=== PATIENT | female | born 1985 | race Caucasian/White ===

== ENCOUNTER 2017-05-01 15:47 | Emergency (ER) | payer OTHER ==
--- NOTE | 2017-05-01 17:39 | RAD REPORT ---
EXAM DESCRIPTION: RAD - Chest Single View - 05/01/2017 5:33 pm CLINICAL HISTORY: Chest pain. COMPARISON: 07/03/2016 FINDINGS: Portable technique limits examination quality. The lungs are grossly clear. The heart is normal in size. No displaced fractures. IMPRESSION: No acute intrathoracic process suspected.
[2017-05-01 18:06] LABS: Absolute Lymphocytes (CBC) 2.1 K/uL (0.7-4.9); Absolute Monocytes 0.6 K/uL (0.1-1.3); Absolute Neutrophil 7.1 K/uL (1.8-8.0); Basophils % 0.4 % (0-1.3); Eosinophils % 0.4 % (0-4.4); Hematocrit 42.9 % (36.0-45.0); MCV 86.8 fL (80-100); MPV 9.6 fL (7.6-11.3); Monocytes % 6.4 % (3.3-12.3); RBC Red Blood Cell Count 4.95 M/uL (3.86-4.86)
[2017-05-01 18:17] LABS: Potassium 3.9 mEq/L (3.6-5.0)
[2017-05-01 18:23] LABS: Albumin 4.9 g/dL (3.2-5.5); Bilirubin Direct 0.1 mg/dL (0-0.2); Bilirubin Total 0.7 mg/dL (0.3-1.2); Protein, Total 8.3 g/dL (6.0-8.3)
[2017-05-01 18:27] LABS: CKMB Creatine Kinase MB 2.5 ng/ml (0.3-4.0)
[2017-05-01] MEDS ORDERED: NA CHLORIDE 0.9% 1,000 ML ONE (19:24)
[2017-05-01 19:41] LABS: T3 Free 3.75 pg/ml (2.84-4.24)
[2017-05-01 19:59] LABS: Thyroid Stimulating Hormone 1.4 uIU/mL (0.34-5.60)
--- NOTE | 2017-05-01 20:10 | EDPHYS ---
Physician Documentation [facility] Name: Lisa Damian Age: 31 yrs Sex: Female : 1985 Arrival Date: 05/01/2017 Time: 15:51 Bed 28 Private MD: ED Physician Abraham Ruano HPI: 05/01 17:10 This 31 yrs old Female presents to ER via Ambulatory with complaints of cp Breathing Difficulty, Palpitations. 17:10 The patient presents with a history of heart racing. cp 17:10 Context: The symptoms occur with exercise. cp 17:10 Onset: The symptoms/episode began/occurred today. cp 17:10 Associated signs and symptoms: Pertinent negatives: chest pain, vertigo. Patient cp reports while working out today she started having shortness of breath, difficulty swallowing and near-syncopal episode. Symptoms have improved since being in the ED. 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 - Social history:: Smoking status: Patient/guardian denies using tobacco. ROS: 17:15 Constitutional: Negative for body aches, chills, fever, poor PO intake. cp 17:15 Eyes: Negative for injury, pain, redness, and discharge. cp 17:15 ENT: Negative for drainage from ear(s), ear pain, sore throat, difficulty swallowing, difficulty handling secretions, hoarseness. 17:15 Neck: Negative for pain with movement, pain at rest, stiffness, swollen nodes, tenderness. 17:15 Cardiovascular: Positive for palpitations, Negative for chest pain, edema. 17:15 Respiratory: Positive for shortness of breath, Negative for cough, wheezing. 17:15 Abdomen/GI: Negative for abdominal pain, nausea, vomiting, and diarrhea, black/tarry stool, rectal bleeding. 17:15 Back: Negative for pain at rest, pain with movement, radiated pain. 17:15 : Negative for urinary symptoms, vaginal bleeding, vaginal discharge. 17:15 Skin: Negative for cellulitis, rash. 17:15 Neuro: Positive for near syncope, Negative for altered mental status, headache, syncope, weakness. 17:15 All other systems are negative. Exam: 16:06 ECG was reviewed by the Attending Physician. cp 17:22 Constitutional: The patient appears in no acute distress, alert, awake, cp non-diaphoretic, non-toxic, well developed, well nourished. 17:22 Head/Face: Normocephalic, atraumatic. Eyes: Pupils equal round and reactive to light, cp extra-ocular motions intact. Lids and lashes normal. Conjunctiva and sclera are non-icteric and not injected. Cornea within normal limits. Periorbital areas with no swelling, redness, or edema. ENT: Nares patent. No nasal discharge, no septal abnormalities noted. Tympanic membranes are normal and external auditory canals are clear. Oropharynx with no redness, swelling, or masses, exudates, or evidence of obstruction, uvula midline. Mucous membranes moist. Neck: Trachea midline, no thyromegaly or masses palpated, and no cervical lymphadenopathy. Supple, full range of motion without nuchal rigidity, or vertebral point tenderness. No Meningismus. Chest/axilla: Normal chest wall appearance and motion. Nontender with no deformity. No lesions are appreciated. 17:22 Cardiovascular: Rate: tachycardic, Rhythm: regular, Pulses: Pulses are 2+ in right radial artery and left radial artery. Edema: is not appreciated, JVD: is not appreciated. 17:22 Respiratory: the patient does not display signs of respiratory distress, Respirations: normal, no use of accessory muscles, no retractions, no splinting, no tachypnea, labored breathing, is not present, Breath sounds: are clear throughout, no decreased breath sounds, no stridor, no wheezing. 17:22 Abdomen/GI: Inspection: abdomen appears normal, Bowel sounds: active, all quadrants, Palpation: abdomen is soft and non-tender, in all quadrants, rebound tenderness, is not appreciated. 17:22 Back: pain, is absent, ROM is normal. 17:22 Skin: cellulitis, is not appreciated, no rash present. 17:22 Neuro: Orientation: to person, place \T\ time. Mentation: lucid, able to follow commands, Cerebellar function: Romberg testing is negative, Motor: moves all fours, strength is normal, Sensation: no obvious gross deficits. Vital Signs: 15:56 BP 166 / 104; Pulse 124; Resp 18; Temp 99.1(O); Pulse Ox 100% on R/A; Weight 83.91 kg tw2 (R); Height 5 ft. 4 in. (162.56 cm) (R); Pain 8/10; 16:03 Pulse 108; tw2 17:51 BP 139 / 93; Pulse 81; Resp 16; Pulse Ox 100% ; tl3 19:11 BP 131 / 82; Pulse 89; Resp 16; Pulse Ox 100% ; tl3 20:35 BP 120 / 77; Pulse 80; Resp 18; Temp 98.5; Pulse Ox 100% ; Pain 0/10; cr4 15:56 Body Mass Index 31.75 (83.91 kg, 162.56 cm) tw2 MDM: 16:54 Patient medically screened. cp 18:00 Differential diagnosis: arrythmia, dehydration, stress disorder, anxiety, electrolyte cp abnormality. 20:05 Data reviewed: vital signs, nurses notes, lab test result(s), EKG, radiologic studies, cp plain films. 20:05 Test interpretation: by ED physician or midlevel provider: ECG, plain radiologic cp studies. Counseling: I had a detailed discussion with the patient and/or guardian regarding: the historical points, exam findings, and any diagnostic results supporting the discharge/admit diagnosis, lab results, radiology results, the need for outpatient follow up, a terminal block assembler, a family practitioner, to return to the emergency department if symptoms worsen or persist or if there are any questions or concerns that arise at home. Response to treatment: the patient's symptoms have markedly improved after treatment, and as a result, I will discharge patient. 05/01 17:09 Order name: Basic Metabolic Panel cp 05/01 17:09 Order name: BNP cp 05/01 17:09 Order name: CBC with Diff cp 05/01 17:09 Order name: Ckmb cp 05/01 17:09 Order name: CPK cp 05/01 17:09 Order name: LFT's cp 05/01 17:09 Order name: Magnesium cp 05/01 17:09 Order name: PT-INR cp 05/01 17:09 Order name: Ptt, Activated cp 05/01 17:09 Order name: Troponin (emerg Dept Use Only) cp 05/01 17:09 Order name: D-Dimer cp 05/01 18:18 Order name: Basic Metabolic Panel; Complete Time: 18:28 EDMS 05/01 18:28 Interpretation: Normal except: GFR 84. cp 05/01 18:23 Order name: CBC with Automated Diff; Complete Time: 18:26 EDMS 05/01 18:26 Interpretation: Normal except: RBC 4.95. cp 05/01 18:24 Order name: Liver (Hepatic) Function; Complete Time: 19:07 EDMS 05/01 17:09 Order name: XRAY Chest (1 view) cp 05/01 18:24 Order name: Creatine Phosphokinase; Complete Time: 19:07 EDMS 05/01 18:27 Interpretation: CPK 513. cp 05/01 18:24 Order name: Magnesium; Complete Time: 19:07 EDMS 05/01 18:25 Order name: Protime (+INR); Complete Time: 18:26 EDMS 05/01 18:25 Order name: PTT, Activated Partial Thromb; Complete Time: 18:26 EDMS 05/01 18:25 Order name: D-Dimer; Complete Time: 18:26 EDMS 05/01 18:27 Interpretation: D-DIMER 265; Reviewed. cp 05/01 18:25 Order name: Troponin (Emerg Dept Use Only); Complete Time: 18:26 EDMS 05/01 19:08 Interpretation: TROPED < 0.03; Reviewed. cp 05/01 18:27 Order name: CKMB Creatine Kinase MB; Complete Time: 19:07 EDMS 05/01 18:27 Order name: BNP B-Type Natriuretic Peptide; Complete Time: 19:07 EDMS 05/01 19:07 Order name: TSH cp 05/01 19:07 Order name: T3 Free cp 05/01 19:09 Order name: LAB Add On cp 05/01 19:40 Order name: Urine Dipstick--Ancillary (enter results) rg2 05/01 19:41 Order name: T3 Free; Complete Time: 20:01 EDMS 05/01 19:59 Order name: Thyroid Stimulating Hormone; Complete Time: 20:01 EDMS 05/01 20:18 Order name: Urine Dipstick-Ancillary EDNM 05/01 17:09 Order name: Urine Test (obtain specimen); Complete Time: 19:37 cp 05/01 17:09 Order name: EKG; Complete Time: 17:10 cp 05/01 17:09 Order name: Cardiac monitoring; Complete Time: 19:15 cp 05/01 17:09 Order name: EKG - Nurse/Tech; Complete Time: 19:15 cp 05/01 17:09 Order name: IV Saline Lock; Complete Time: 19:14 cp 05/01 17:09 Order name: Labs collected and sent; Complete Time: 19:14 cp 05/01 17:09 Order name: O2 Per Protocol; Complete Time: 19:14 cp 05/01 17:09 Order name: O2 Sat Monitoring; Complete Time: 19:14 cp 05/01 17:09 Order name: Urine Dipstick-Ancillary (obtain specimen); Complete Time: 19:37 cp 05/01 17:09 Order name: Orthostatics 05/01 17:40 Order name: RAD; Complete Time: 18:26 EDNM 05/01 19:25 Interpretation: Report reviewed. cp EC:06 Rate is 94 beats/min. Rhythm is regular. UT interval is normal. QRS interval is normal. cp QT interval is normal. No ST changes noted. Interpreted by me. Reviewed by me. Administered Medications: 19:14 Drug: NS 0.9% 1000 ml Route: IV; Rate: 1 bolus; Site: left antecubital; Delivery: tl3 Primary tubing; Disposition: 05/02 07:07 Co-signature as Attending Physician, Abraham Ruano MD. ma2 Disposition: 05/01/17 20:09 Discharged to Home. Impression: Palpitations, Shortness of breath. - Condition is Stable. - Discharge Instructions: Palpitations, Shortness of Breath. - Prescriptions for Protonix 40 mg Oral Tablet - take 1 tablet by ORAL route once daily; 30 tablet. Albuterol Sulfate 90 mcg/actuation - inhale 1-2 puff by INHALATION route every 4-6 hours; 1 Inhaler. - Medication Reconciliation Form, Thank You Letter, Antibiotic Education, Prescription Opioid Use form. - Follow up: Private Physician; When: 2 - 3 days; Reason: Recheck today's complaints. - Problem is new. - Symptoms have improved. Signatures: Dispatcher [employer] Barbara Nickerson, RN RN cr4 Nicanor White PA PA cp Wise, Tara RN RN tw2 Abraham Ruano MD MD ma2 Shira Yao RN RN tl3
--- NOTE | 2017-05-01 20:10 | ER ---
Nurse's Notes [facility] Name: Lisa Damian Age: 31 yrs Sex: Female : 1985 Arrival Date: 05/01/2017 Time: 15:51 Bed 28 Private MD: Diagnosis: Palpitations;Shortness of breath Presentation: 05/01 15:53 Presenting complaint: Patient states: pt appears anxious , pt crying pt states "i dont tw2 even know why i am crying" "i was working out and i started feeling like i was going to pass out, i feel like i cant breathe, it comes and goes, like something is in my lung, this has been happening for like 3 weeks". Transition of care: patient was not received from another setting of care. Onset of symptoms was May 01, 2017. Care prior to arrival: None. "i just started Focalin a little bit ago i think it may be that". 15:53 Method Of Arrival: Ambulatory tw2 15:53 Acuity: DEAN 3 tw2 15:59 Note "my brother had to have an ablation done because of this". tw2 Triage Assessment: 15:58 General: Appears well groomed, Behavior is anxious. Pain: Complains of pain in chest. tw2 Respiratory: Reports shortness of breath at rest Onset: The symptoms/episode began/occurred "about a week off and on", the patient has moderate shortness of breath. 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 - Social history:: Smoking status: Patient/guardian denies using tobacco. Screenin:06 Abuse screen: Denies threats or abuse. Nutritional screening: No deficits noted. tl3 Tuberculosis screening: No symptoms or risk factors identified. Fall Risk None identified. Assessment: 17:06 General: Appears uncomfortable, well groomed, well developed, well nourished, Behavior tl3 is cooperative, anxious. Pain: Denies pain. Neuro: Level of Consciousness is awake, alert, obeys commands, Oriented to person, place, time, situation, Appropriate for age. Neuro: Reports dizziness, since episode today [place] [address], had to door puller, felt like she was going to pass out. Cardiovascular: Reports palpitations, Heart tones S1 S2 present Capillary refill < 3 seconds Rhythm is regular. Respiratory: Airway is patent Trachea midline Respiratory effort is even, unlabored, Respiratory pattern is regular, symmetrical. GI: No signs and/or symptoms were reported involving the gastrointestinal system. Abdomen is round Bowel sounds present X 4 quads. : No signs and/or symptoms were reported regarding the genitourinary system. EENT: No signs and/or symptoms were reported regarding the EENT system. Derm: No signs and/or symptoms reported regarding the dermatologic system. Musculoskeletal: No signs and/or symptoms reported regarding the musculoskeletal system. 19:18 Reassessment: Patient and/or family updated on plan of care and expected duration. Pain cr4 level reassessed. Patient is alert, oriented x 3, equal unlabored respirations, skin warm/dry/pink. Patient states feeling better. Neuro: No deficits noted. Denies weakness dizziness, numbness headache. Respiratory: Respiratory effort is even, unlabored. 20:00 Reassessment: Patient and/or family updated on plan of care and expected duration. Pain cr4 level reassessed. Patient is alert, oriented x 3, equal unlabored respirations, skin warm/dry/pink. Patient states feeling better. Respiratory: Breath sounds are clear bilaterally. Vital Signs: 15:56 BP 166 / 104; Pulse 124; Resp 18; Temp 99.1(O); Pulse Ox 100% on R/A; Weight 83.91 kg tw2 (R); Height 5 ft. 4 in. (162.56 cm) (R); Pain 8/10; 16:03 Pulse 108; tw2 17:51 BP 139 / 93; Pulse 81; Resp 16; Pulse Ox 100% ; tl3 19:11 BP 131 / 82; Pulse 89; Resp 16; Pulse Ox 100% ; tl3 20:35 BP 120 / 77; Pulse 80; Resp 18; Temp 98.5; Pulse Ox 100% ; Pain 0/10; cr4 15:56 Body Mass Index 31.75 (83.91 kg, 162.56 cm) tw2 ED Course: 15:51 Patient arrived in ED. rg4 15:56 Triage completed. tw2 16:24 EKG done, by x ray service technician. reviewed by Abraham Ruano MD. at1 16:54 Nicanor White PA is PHCP. cp 16:54 Abraham Ruano MD is Attending Physician. cp 16:55 Shira Yao, RN is Primary Nurse. tl3 17:06 No provider procedures requiring assistance completed. tl3 17:06 Patient has correct armband on for positive identification. Bed in low position. Call tl3 light in reach. Side rails up X 1. 17:06 medical geneticist on. Pulse ox on. NIBP on. Door closed. Warm blanket given. tl3 17:31 X-ray completed. Portable x-ray completed in exam room. Patient tolerated procedure ag1 well. 17:50 Initial lab(s) drawn, by ED staff, sent to lab. Inserted saline lock: 20 gauge in left tl3 antecubital area, using aseptic technique. Blood collected. 20:00 Arm band placed on. cr4 20:30 IV discontinued, intact, bleeding controlled. cr4 Administered Medications: 19:14 Drug: NS 0.9% 1000 ml Route: IV; Rate: 1 bolus; Site: left antecubital; Delivery: tl3 Primary tubing; Outcome: 20:09 Discharge ordered by . cp 20:35 Patient left the ED. cr4 20:35 Discharged to home ambulatory. cr4 20:35 Condition: good 20:35 Discharge instructions given to patient, Instructed on discharge instructions, follow up and referral plans. medication usage, Demonstrated understanding of instructions, follow-up care, medications, Prescriptions given X 2. Signatures: Barbara Conley, RN RN cr4 Adali bone, healthcare representative EKG Tat1 Claudia Granado ag1 Nicanor White PA PA cp Luisana Soliz, RN RN tw2 Ying Lacy rg4 Shira Yao, RN RN tl3
[2017-05-01 20:18] LABS: Urine Blood 1+ (NEG); Urine Glucose NEGATIVE (NEG); Urine Protein NEGATIVE (NEG); Urine Specific Gravity <1.005 (1.005-1.030); Urine pH 5.5 (5.0-7.0)
--- NOTE | 2017-05-01 22:28 | EKG ---
Test Date: 2017-05-01 Test Time: 16:03:34 Tank Farm Operator: CLARIBEL MEASUREMENT RESULTS: Intervals: Rate: 94 MN: 132 QRSD: 88 QT: 346 QTc: 432 Kincaid: P: 65 MN: 132 QRS: 71 T: 44 INTERPRETIVE STATEMENTS: Normal sinus rhythm with sinus arrhythmia Normal ECG Compared to ECG 07/17/2016 23:29:35 No significant changes Electronically Signed On 05-01-17 22:28:20 CDT by Bruce Martell
== END 2017-05-01 20:35 | disposition home or self-care (01) ==
LOC: ER 15:47
DX: R00.2 Palpitations (principal); F90.9 Attention-deficit hyperactivity disorder, unspecified type; Z91.048 Other nonmedicinal substance allergy status
CPT/HCPCS: 36415; 71045; 80048; 80076; 81003; 82550; 82553; 83735; 83880; 84443; 84481; 84484; 85025; 85379; 85610; 85730; 93005; 99284; J7030

== ENCOUNTER 2017-12-16 20:22 | Emergency (ER) | payer OTHER ==
--- NOTE | 2017-12-16 21:35 | RAD REPORT ---
EXAM DESCRIPTION: CT - Head Brain Wo Cont - 12/16/2017 9:16 pm CLINICAL HISTORY: Headache COMPARISON: 2014 TECHNIQUE: Computed axial tomography of the head was obtained. IV contrast was not requested. All CT scans are performed using dose optimization technique as appropriate and may include automated exposure control or mA/KV adjustment according to patient size. FINDINGS: An intracranial bleed is not seen . The ventricles are normal in caliber. No extra-axial fluid collection is noted. Fluid within the sinuses/ mastoids is not seen. IMPRESSION: No acute intracranial abnormality is seen. If patient's symptoms persist MRI of the bra in would be recommended.
[2017-12-16 21:53] LABS: Absolute Lymphocytes (CBC) 2.4 K/uL (0.7-4.9); Absolute Monocytes 0.7 K/uL (0.1-1.3); Absolute Neutrophil 4.7 K/uL (1.8-8.0); Basophils % 0.3 % (0-1.3); Eosinophils % 0.9 % (0-4.4); Hematocrit 41.3 % (36.0-45.0); Lymphocytes % 30.2 % (15.3-44.8); MCH 29.6 pg (27.0-35.0); MCV 87.3 fL (80-100); MPV 9.1 fL (7.6-11.3); Monocytes % 8.8 % (3.3-12.3); RBC Red Blood Cell Count 4.73 M/uL (3.86-4.86)
[2017-12-16 22:01] LABS: Protime INR 0.96
[2017-12-16 22:05] LABS: Potassium 3.3 mmol/L (3.5-5.1)
[2017-12-16 22:10] LABS: Urine Blood TRACE (NEG); Urine Glucose NEGATIVE (NEG); Urine Protein NEGATIVE (NEG)
[2017-12-16] MEDS ORDERED: DEXAMETHASONE 10 MG/ML VIAL ONE (22:12)
[2017-12-16] MEDS ORDERED: NA CHLORIDE 0.9% 1,000 ML ONE (22:13)
[2017-12-16] MEDS ORDERED: NA CHLORIDE 0.9% 100 ML IV ONE (22:13)
[2017-12-16] MEDS ORDERED: ONDANSETRON 4 MG/2 ML VIAL ONE (22:13)
[2017-12-16] MEDS ORDERED: METOCLOPRAMIDE 10 MG/2mL INJ ONE (22:13)
[2017-12-16] MEDS ORDERED: POTASSIUM 25 MEQ EFFERV TAB ONE (22:58)
[2017-12-16] MEDS ORDERED: KETOROLAC 30 MG/ML INJ ONE (22:58)
--- NOTE | 2017-12-16 23:18 | ER ---
Nurse's Notes [facility] Name: Lisa Damian Age: 32 yrs Sex: Female : 1985 Arrival Date: 12/16/2017 Time: 20:23 Bed 27 Private MD: Jesus Pinedo Diagnosis: Headache Presentation: 12/16 20:26 Presenting complaint: Patient states: I started having a headache 2 hours ago, now I am kr2 having tingling to left side of face, I have felt shaky and nauseated. I feel weak and I have some chest pressure. Transition of care: patient was not received from another setting of care. Onset of symptoms was December 16, 2017. Risk Assessment: Do you want to hurt yourself or someone else? Patient reports no desire to harm self or others. Initial Sepsis Screen: Does the patient meet any 2 criteria? No. Patient's initial sepsis screen is negative. Does the patient have a suspected source of infection? No. Patient's initial sepsis screen is negative. Care prior to arrival: Medication(s) given: Tylenol. 20:26 Method Of Arrival: Ambulatory [facility] 20:26 Acuity: DEAN 3 kr2 Triage Assessment: 20:30 Headache History: The patient has had previous headaches and this one is similar to 2 previous episodes. General: Appears in no apparent distress. uncomfortable, well groomed, well developed, well nourished, Behavior is calm, cooperative, appropriate for age. Pain: Complains of pain in chest Pain does not radiate. Pain currently is 7 out of 10 on a pain scale. at worst was 7 out of 10 on a pain scale. Quality of pain is described as sharp, tingling, Pain began 2 hours ago. Is continuous, Alleviated by nothing. Also complains of nausea. Neuro: Level of Consciousness is awake, alert, obeys commands, Oriented to person, place, time, situation, Appropriate for age Hvac Instructor are equal bilaterally Moves all extremities. Gait is steady, Speech Facial symmetry appears normal, Pupils are PERRLA, Tingling in face. 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 - Social history:: Smoking status: Patient/guardian denies using tobacco. - Ebola Screening: : No symptoms or risks identified at this time. Screenin:47 Abuse screen: Denies threats or abuse. Denies injuries from another. Nutritional mg2 screening: No deficits noted. Tuberculosis screening: No symptoms or risk factors identified. Fall Risk IV access (20 points). Assessment: 23:46 General: Appears in no apparent distress. comfortable, Behavior is calm, cooperative. mg2 Pain: Complains of pain in face and chest. Neuro: Level of Consciousness is awake, alert, obeys commands, Oriented to person, place, time, situation, Reports headache. Cardiovascular: Capillary refill < 3 seconds Patient's skin is warm and dry. Respiratory: Airway is patent Respiratory effort is even, unlabored, Respiratory pattern is regular, symmetrical. GI: Reports nausea. : No signs and/or symptoms were reported regarding the genitourinary system. EENT: No signs and/or symptoms were reported regarding the EENT system. Derm: Skin is intact, is healthy with good turgor, Skin is pink, warm \T\ dry. normal. Musculoskeletal: No deficits noted. Vital Signs: 20:33 BP 129 / 92; Pulse 80; Resp 19; Temp 98.4; Pulse Ox 99% on R/A; Weight 79.38 kg; Height kr2 5 ft. 4 in. (162.56 cm); Pain 7/10; 23:30 BP 134 / 80; Pulse 81; Resp 18; Pulse Ox 100% on R/A; mg2 20:33 Body Mass Index 30.04 (79.38 kg, 162.56 cm) kr2 ED Course: 19:45 Inserted saline lock: 20 gauge in left antecubital area, using aseptic technique. Blood ds4 collected. 20:23 Patient arrived in ED. am2 20:24 Jesus Pinedo MD is Private Physician. am2 20:28 Triage completed. kr2 20:56 [facility] White [facility]. cp 20:56 Conner Portillo MD is Attending Physician. cp 21:05 Roberto José, RN is Primary Nurse. mg2 21:16 CT Head Brain wo Cont In Process Unspecified. EDMS 21:18 CT completed. Patient tolerated procedure well. Patient moved back from CT. 23:47 No provider procedures requiring assistance completed. IV discontinued, intact, mg2 bleeding controlled. 23:47 Patient has correct armband on for positive identification. Placed in gown. Bed in low mg2 position. Call light in reach. Side rails up X 1. terra cotta mold maker on. Pulse ox on. NIBP on. Door closed. 23:49 Arm band placed on. mg2 Administered Medications: 22:34 Not Given (Patient Refused): Zofran 4 mg IVP once; over 2 minutes mg2 22:34 Not Given (Patient Refused): Benadryl 25 mg PO once mg2 22:35 Drug: NS 0.9% 1000 ml Route: IV; Rate: 1 bolus; Site: left antecubital; mg2 23:48 Follow up: Response: No adverse reaction; IV Status: Completed infusion mg2 22:35 Not Given (Patient Refused): Reglan 20 mg IVP once; over 15 mins mg2 22:35 Not Given (Patient Refused): Decadron - Dexamethasone 10 mg IVP once mg2 22:56 Drug: Potassium Effervescent Tablet 50 mEq Route: PO; mg2 23:48 Follow up: Response: No adverse reaction; Marked relief of symptoms mg2 22:56 Drug: TORadol 30 mg Route: IVP; Site: left antecubital; mg2 23:48 Follow up: Response: No adverse reaction; Marked relief of symptoms mg2 Outcome: 23:17 Discharge ordered by . 23:48 Discharged to home ambulatory. mg2 23:48 Condition: stable 23:48 Discharge instructions given to patient, Instructed on discharge instructions, follow up and referral plans. medication usage, Demonstrated understanding of instructions, follow-up care, medications, Prescriptions given X 1. 23:50 Patient left the ED. mg2 Signatures: Dispatcher [employer] Joe Torres Antony Pelaez ds4 Nicanor White PA PA Adali Wei am2 Catalina Gray, RN RN kr2 Roberto José, RN RN mg2
--- NOTE | 2017-12-16 23:18 | EDPHYS ---
Physician Documentation [facility] Name: Lisa Damian Age: 32 yrs Sex: Female : 1985 Arrival Date: 12/16/2017 Time: 20:23 Bed 27 Private MD: Jesus Pinedo ED Physician Conner Portillo HPI: 12/16 21:05 This 32 yrs old Female presents to ER via Ambulatory with complaints of cp Numbness Of Face, Headache. 21:05 The patient complains of pain to the left side of head and face. cp 21:05 The patient describes the headache as aching, waxing and waning. Onset: The cp symptoms/episode began/occurred last week, returned earlier today and became worse. Associated signs and symptoms: Pertinent positives: nausea, paresthesias, blurred vision, chest pressure, Pertinent negatives: altered mental status, fever, neck stiffness, vision loss. Severity of symptoms: in the emergency department the pain is unchanged, despite home interventions. Headache History: Denies prior headaches. 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 - Social history:: Smoking status: Patient/guardian denies using tobacco. - Ebola Screening: : No symptoms or risks identified at this time. ROS: 21:10 Constitutional: Negative for body aches, chills, fever, poor PO intake. cp 21:10 Eyes: Positive for blurry vision, Negative for discharge, redness, vision loss. cp 21:10 ENT: Negative for drainage from ear(s), ear pain, sinus congestion, sore throat, difficulty swallowing, difficulty handling secretions. 21:10 Cardiovascular: Negative for chest pain, edema, palpitations. 21:10 Respiratory: Negative for cough, shortness of breath, wheezing. 21:10 Abdomen/GI: Positive for nausea, Negative for abdominal pain, vomiting, diarrhea, constipation, black/tarry stool, rectal bleeding. 21:10 Back: Negative for pain at rest, pain with movement. 21:10 : Negative for urinary symptoms. 21:10 Skin: Negative for cellulitis, rash. 21:10 Neuro: Positive for headache, Negative for altered mental status, dizziness, syncope, near syncope, weakness. 21:10 All other systems are negative. Exam: 21:15 Constitutional: The patient appears in no acute distress, alert, awake, cp non-diaphoretic, non-toxic, well developed, well nourished. 21:15 Head/Face: Normocephalic, atraumatic. Eyes: Pupils equal round and reactive to light, cp extra-ocular motions intact. Lids and lashes normal. Conjunctiva and sclera are non-icteric and not injected. Cornea within normal limits. Periorbital areas with no swelling, redness, or edema. ENT: Nares patent. No nasal discharge, no septal abnormalities noted. Tympanic membranes are normal and external auditory canals are clear. Oropharynx with no redness, swelling, or masses, exudates, or evidence of obstruction, uvula midline. Mucous membranes moist. Neck: Trachea midline, no thyromegaly or masses palpated, and no cervical lymphadenopathy. Supple, full range of motion without nuchal rigidity, or vertebral point tenderness. No Meningismus. Chest/axilla: Normal chest wall appearance and motion. Nontender with no deformity. No lesions are appreciated. 21:15 Cardiovascular: Rate: normal, Rhythm: regular, Heart sounds: murmur, not appreciated, Edema: is not appreciated. 21:15 Respiratory: the patient does not display signs of respiratory distress, Respirations: normal, no use of accessory muscles, no retractions, no splinting, no tachypnea, labored breathing, is not present, Breath sounds: are clear throughout, no decreased breath sounds, no stridor, no wheezing. 21:15 Abdomen/GI: Inspection: abdomen appears normal, Bowel sounds: active, all quadrants, Palpation: abdomen is soft and non-tender, in all quadrants, rebound tenderness, is not appreciated, voluntary guarding, is not appreciated, involuntary guarding, is not appreciated. 21:15 Back: pain, is absent, ROM is normal. 21:15 Skin: cellulitis, is not appreciated, no rash present. 21:15 Neuro: Orientation: to person, place \T\ time. Mentation: is normal, Cerebellar function: is grossly normal, Motor: is normal, Sensation: tingling, that is mild, of the left side of face. Vital Signs: 20:33 BP 129 / 92; Pulse 80; Resp 19; Temp 98.4; Pulse Ox 99% on R/A; Weight 79.38 kg; Height kr2 5 ft. 4 in. (162.56 cm); Pain 7/10; 23:30 BP 134 / 80; Pulse 81; Resp 18; Pulse Ox 100% on R/A; mg2 20:33 Body Mass Index 30.04 (79.38 kg, 162.56 cm) kr2 MDM: 20:56 Patient medically screened. cp 22:00 Differential diagnosis: cerebral vascular accident, hypoglycemia, hyponatremia, cp meningitis, meningoencephalitis, migraine, sinusitis, subarachnoid bleed, tension headache. 23:15 Data reviewed: vital signs, nurses notes, lab test result(s), radiologic studies, CT cp scan. 23:15 Counseling: I had a detailed discussion with the patient and/or guardian regarding: the cp historical points, exam findings, and any diagnostic results supporting the discharge/admit diagnosis, lab results, radiology results, to return to the emergency department if symptoms worsen or persist or if there are any questions or concerns that arise at home. Response to treatment: the patient's symptoms have markedly improved after treatment, VSS. Patient reports headache improved, and as a result, I will discharge patient. 12/16 21:03 Order name: CBC with Diff; Complete Time: 22:11 cp 12/16 21:03 Order name: BMP; Complete Time: 22:11 cp 12/16 21:03 Order name: PT-INR; Complete Time: 22:11 cp 12/16 21:03 Order name: Ptt, Activated; Complete Time: 22:11 cp 12/16 22:04 Order name: Urine Dipstick--Ancillary (enter results); Complete Time: 22:11 em 12/16 22:04 Order name: Urine --Ancillary (enter results); Complete Time: 22:11 em 12/16 21:03 Order name: CT Head Brain wo Cont; Complete Time: 21:36 cp 12/16 21:03 Order name: Urine Dipstick-Ancillary (obtain specimen); Complete Time: 22:03 cp 12/16 21:03 Order name: Urine Test (obtain specimen); Complete Time: 22:03 cp Administered Medications: 22:34 Not Given (Patient Refused): Zofran 4 mg IVP once; over 2 minutes mg2 22:34 Not Given (Patient Refused): Benadryl 25 mg PO once mg2 22:35 Drug: NS 0.9% 1000 ml Route: IV; Rate: 1 bolus; Site: left antecubital; mg2 23:48 Follow up: Response: No adverse reaction; IV Status: Completed infusion mg2 22:35 Not Given (Patient Refused): Reglan 20 mg IVP once; over 15 mins mg2 22:35 Not Given (Patient Refused): Decadron - Dexamethasone 10 mg IVP once mg2 22:56 Drug: Potassium Effervescent Tablet 50 mEq Route: PO; mg2 23:48 Follow up: Response: No adverse reaction; Marked relief of symptoms mg2 22:56 Drug: TORadol 30 mg Route: IVP; Site: left antecubital; mg2 23:48 Follow up: Response: No adverse reaction; Marked relief of symptoms mg2 Disposition: 23:55 Chart complete. 12/17 06:53 Co-signature as Attending Physician, Conner Portillo MD I agree with the assessment and wa plan of care. Disposition: 12/16/17 23:17 Discharged to Home. Impression: Headache. - Condition is Stable. - Discharge Instructions: Migraine Headache. - Prescriptions for Imitrex 50 mg Oral Tablet - take 1 tablet by ORAL route one time - x 1 dose with fluids as early as possible after the onset of a migraine attack; if headache returns, the dose may be repeated after 2 hours, not to exceed a total daily dose of 4 tablets;. Naprosyn 500 mg Oral Tablet - take 1 tablet by ORAL route 2 times per day take with food; 30 tablet. - Medication Reconciliation Form, Thank You Letter, Antibiotic Education, Prescription Opioid Use form. - Follow up: Private Physician; When: 1 - 2 days; Reason: Recheck today's complaints. - Problem is new. - Symptoms have improved. Signatures: Dispatcher [employer] EDMS Nicanro White PA PA cp Appiah, William, MD MD wa Reaves, Karey, RN RN kr2 Roberto José RN RN mg2 Corrections: (The following items were deleted from the chart) 12/16 23:50 23:17 12/16/2017 23:17 Discharged to Home. Impression: Headache. Condition is Stable. mg2 Forms are Medication Reconciliation Form, Thank You Letter, Antibiotic Education, Prescription Opioid Use. Follow up: Private Physician; When: 1 - 2 days; Reason: Recheck today's complaints. Problem is new. Symptoms have improved. cp
== END 2017-12-16 23:50 | disposition home or self-care (01) ==
LOC: ER 20:22
DX: R51 Headache (principal); F98.8 Other specified behavioral and emotional disorders with onset usually occurring in childhood and adolescence
CPT/HCPCS: 36415; 70450; 80048; 81003; 81025; 85025; 85610; 85730; 96361; 96374; 99285; J1100; J2405; J2765; J7030

== ENCOUNTER 2018-04-16 14:31 | Emergency (ER) | payer OTHER ==
[2018-04-16] MEDS ORDERED: NA CHLORIDE 0.9% 1,000 ML ONE (15:51)
[2018-04-16] MEDS ORDERED: ONDANSETRON 4 MG/2 ML VIAL ONE (15:51)
[2018-04-16] MEDS ORDERED: FAMOTIDINE 20 MG/2 ML VIAL IV ONE (15:51)
[2018-04-16 16:17] LABS: Absolute Lymphocytes (CBC) 2.5 K/uL (0.7-4.9); Absolute Monocytes 0.6 K/uL (0.1-1.3); Basophils % 0.4 % (0-1.3); Eosinophils % 0.6 % (0-4.4); Hematocrit 42.5 % (36.0-45.0); Lymphocytes % 34.9 % (15.3-44.8); MPV 9.2 fL (7.6-11.3); Monocytes % 8.4 % (3.3-12.3); RBC Red Blood Cell Count 4.96 M/uL (3.86-4.86)
[2018-04-16 16:23] LABS: Albumin 4.4 g/dL (3.4-5.0); Bilirubin Direct 0.1 mg/dL (0-0.2); Bilirubin Total 0.4 mg/dL (0.2-1.0); Potassium 3.6 mmol/L (3.5-5.1); Protein, Total 8.2 g/dL (6.4-8.2)
[2018-04-16 16:34] LABS: Urine Blood NEGATIVE (NEG); Urine Glucose NEGATIVE (NEG); Urine Protein NEGATIVE (NEG)
--- NOTE | 2018-04-16 17:15 | RAD REPORT ---
EXAM DESCRIPTION: CTAbdomen Pelvis W Contrast - 04/16/2018 4:55 pm CLINICAL HISTORY: Abdominal pain. ABD PAIN COMPARISON: No comparisons TECHNIQUE: Biphasic CT imaging of the abdomen and pelvis was performed with 100 ml non-ionic IV cont rast. All CT scans are performed using dose optimization technique as appropriate and may include automated exposure control or mA/KV adjustment according to patient size. FINDINGS: The lung bases are clear.Cholecystectomy clips. The liver, spleen, pancreas, adrenal glands and kidneys are within normal limits. No bowel obstruction, free air, free fluid or abscess. The appendix is not identified as a discrete structure, however, no secondary findings of appendicitis are identified. No evidence of significan t lymphadenopathy. No suspicious bony findings. IUD is present in the uterus. IMPRESSION: No acute intra-abdominal or pelvic finding.
--- NOTE | 2018-04-16 17:38 | EDPHYS ---
Physician Documentation [facility] Name: Lisa Damian Age: 32 yrs Sex: Female : 1985 Arrival Date: 04/16/2018 Time: 14:34 Bed 19 Private MD: Jesus Pinedo ED Physician Senthil Slade HPI: 04/16 16:12 This 32 yrs old Female presents to ER via Ambulatory with complaints of kdr Headache, Abdominal Pain. 16:12 The patient states that about an hour and a half prior to arrival, she began to have kdr pain in her right ear. She then developed a CHILDERS that was left sided and more global. She also developed abdominal pain that is periumbilical and non-radiating, intermittent - feels like she is being punched in the stomach. No vomiting and only slight nausea. She has no other related s/s.. Severity of symptoms: At their worst the symptoms were moderate in the emergency department the symptoms have improved mildly. The patient has not experienced similar symptoms in the past. The patient has not recently seen a physician. 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 - Social history:: Smoking status: Patient/guardian denies using tobacco, Patient/guardian denies using alcohol. - Ebola Screening: : Patient negative for fever greater than or equal to 101.5 degrees Fahrenheit, and additional compatible Ebola Virus Disease symptoms Patient denies exposure to infectious person Patient denies travel to an Ebola-affected area in the 21 days before illness onset. ROS: 16:12 Constitutional: Negative for fever, chills, and weight loss, Eyes: Negative for injury, kdr pain, redness, and discharge, Neck: Negative for injury, pain, and swelling, Cardiovascular: Negative for chest pain, palpitations, and edema, Respiratory: Negative for shortness of breath, cough, wheezing, and pleuritic chest pain, Back: Negative for injury and pain, : Negative for injury, bleeding, discharge, and swelling, MS/Extremity: Negative for injury and deformity, Skin: Negative for injury, rash, and discoloration, Neuro: Negative for headache, weakness, numbness, tingling, and seizure activity. Psych: Negative for depression, anxiety, suicide ideation, homicidal ideation, and hallucinations, Allergy/Immunology: Negative for hives, rash, and allergies, Endocrine: Negative for neck swelling, polydipsia, polyuria, polyphagia, and marked weight changes, Hematologic/Lymphatic: Negative for swollen nodes, abnormal bleeding, and unusual bruising. 16:12 ENT: Positive for ear pain, of the right ear. 16:12 Abdomen/GI: Positive for abdominal pain, nausea, Negative for vomiting, diarrhea, constipation, abdominal distension, anorexia, dysphagia, hematemesis, black/tarry stool, rectal pain, rectal bleeding, bowel incontinence. Exam: 16:12 Constitutional: This is a well developed, well nourished patient who is awake, alert, kdr and in mild distress. Head/Face: Normocephalic, atraumatic. Eyes: Pupils equal round and reactive to light, extra-ocular motions intact. Lids and lashes normal. Conjunctiva and sclera are non-icteric and not injected. Cornea within normal limits. Periorbital areas with no swelling, redness, or edema. Neck: Trachea midline, no thyromegaly or masses palpated, and no cervical lymphadenopathy. Supple, full range of motion without nuchal rigidity, or vertebral point tenderness. No Meningismus. Chest/axilla: Normal chest wall appearance and motion. Nontender with no deformity. No lesions are appreciated. Cardiovascular: Regular rate and rhythm with a normal S1 and S2. No gallops, murmurs, or rubs. Normal PMI, no JVD. No pulse deficits. Respiratory: Lungs have equal breath sounds bilaterally, clear to auscultation and percussion. No rales, rhonchi or wheezes noted. No increased work of breathing, no retractions or nasal flaring. Back: No spinal tenderness. No costovertebral tenderness. Full range of motion. Skin: Warm, dry with normal turgor. Normal color with no rashes, no lesions, and no evidence of cellulitis. MS/ Extremity: Pulses equal, no cyanosis. Neurovascular intact. Full, normal range of motion. Neuro: Awake and alert, GCS 15, oriented to person, place, time, and situation. Cranial nerves II-XII grossly intact. Motor strength 5/5 in all extremities. Sensory grossly intact. Cerebellar exam normal. Normal gait. Psych: Awake, alert, with orientation to person, place and time. Behavior, mood, and affect are within normal limits. 16:12 ENT: External ear(s): are unremarkable, Ear canal(s): are normal, TM's: are normal, no evidence of bulging, no dullness, no erythema, no fluid levels, Examination of the other ear shows no obvious abnormality, Mouth: is normal, no acute changes. Vital Signs: 14:41 BP 114 / 75; Pulse 122; Resp 18; Temp 99.2(O); Pulse Ox 97% on R/A; Weight 77.11 kg; hj Height 5 ft. 4 in. (162.56 cm); Pain 7/10; 17:07 BP 121 / 78; Pulse 98; Resp 16; Pulse Ox 100% on R/A; Pain 6/10; ed1 14:41 Body Mass Index 29.18 (77.11 kg, 162.56 cm) hj MDM: 16:12 Data reviewed: vital signs, nurses notes, lab test result(s). Counseling: I had a kdr detailed discussion with the patient and/or guardian regarding: the historical points, exam findings, and any diagnostic results supporting the discharge/admit diagnosis, lab results, radiology results, the need for outpatient follow up. 16:35 ED course: The patient refused pain medication. [facility] 17:38 Patient medically screened. [facility] 04/16 15:34 Order name: Basic Metabolic Panel; Complete Time: 16:34 [facility] 04/16 15:34 Order name: CBC with Diff; Complete Time: 16:34 [facility] 04/16 15:34 Order name: Creatinine for Radiology; Complete Time: 16:34 [facility] 04/16 15:34 Order name: Hepatic Function; Complete Time: 16:34 [facility] 04/16 15:34 Order name: Lipase; Complete Time: 16:34 [facility] 04/16 16:28 Order name: Urine Dipstick--Ancillary (enter results); Complete Time: 17:20 04/16 15:34 Order name: IV Saline Lock; Complete Time: 15:48 [facility] 04/16 15:34 Order name: Labs collected and sent; Complete Time: 16:04 kdr 03 15:34 Order name: CT Abd/Pelvis - W/Contrast; Complete Time: 17:20 kdr Administered Medications: 15:48 Not Given (Patient Refused): Zofran 4 mg IVP once; over 2 minutes ed1 15:48 Not Given (Patient Refused): Pepcid 20 mg IVP once ed1 16:00 Drug: NS 0.9% 1000 ml Route: IV; Rate: 1 bolus; Site: right antecubital; ed1 17:49 Follow up: IV Status: Completed infusion; IV Intake: 1000ml ed1 17:30 Drug: Tylenol 1000 mg Route: PO; ed1 17:49 Follow up: Response: No adverse reaction ed1 Disposition: 04/16/18 17:38 Discharged to Home. Impression: Right ear pain, Abdominal and pelvic pain. - Condition is Stable. - Discharge Instructions: Abdominal Pain, Adult, [id number]. - Prescriptions for Bentyl 20 mg Oral Tablet - take 1 tablet by ORAL route every 6 hours As needed; 20 tablet. Pepcid 20 mg Oral Tablet - take 1 tablet by ORAL route every 12 hours for 5 days; 10 tablet. Zofran 4 mg Oral Tablet - take 1 tablet by ORAL route every 12 hours As needed; 6 tablet. Tramadol 50 mg Oral Tablet - take 1 tablet by ORAL route every 8 hours as needed; 12 tablet. - Medication Reconciliation Form, Thank You Letter, Prescription Opioid Use, Work release form form. - Follow up: Jesus Pinedo MD; When: 2 - 3 days; Reason: If symptoms return, Further diagnostic work-up, Recheck today's complaints, Continuance of care, Re-evaluation by your physician. - Problem is new. - Symptoms have improved. Signatures: Dispatcher [employer] EDMS Senthil Slade MD MD [facility] Alba Cruz RN RN ed1 Marty Rockwell RN RN Corrections: (The following items were deleted from the chart) 17:50 17:38 04/16/2018 17:38 Discharged to Home. Impression: Right ear pain; Abdominal and ed1 pelvic pain. Condition is Stable. Forms are Medication Reconciliation Form, Thank You Letter, Antibiotic Education, Prescription Opioid Use. Follow up: Jesus Pinedo; When: 2 - 3 days; Reason: If symptoms return, Further diagnostic work-up, Recheck today's complaints, Continuance of care, Re-evaluation by your physician. Problem is new. Symptoms have improved. kdr
--- NOTE | 2018-04-16 17:38 | ER ---
Nurse's Notes [facility] Name: Lisa Damian Age: 32 yrs Sex: Female : 1985 Arrival Date: 04/16/2018 Time: 14:34 Bed 19 Private MD: Jeuss Pinedo Diagnosis: Right ear pain;Abdominal and pelvic pain Presentation: 04/16 14:37 Presenting complaint: Patient states: i was sitting at work, all of a sudden my ears hj itching, my outer ear is hurting; L side of my face is tinggly; feeling light headed, my stomach started hurting; denies fever and chills; denies constipation and diarrhea; reports abd pain; and past 4 days i started peeing frequently and there's no way ia m , im on control;. Transition of care: patient was not received from another setting of care. Onset of symptoms was April 16, 2018. Risk Assessment: Do you want to hurt yourself or someone else? Patient reports no desire to harm self or others. Initial Sepsis Screen: Does the patient meet any 2 criteria? No. Patient's initial sepsis screen is negative. Does the patient have a suspected source of infection? No. Patient's initial sepsis screen is negative. Care prior to arrival: None. 14:37 Method Of Arrival: Ambulatory 14:37 Acuity: DEAN 3 hj Triage Assessment: 14:40 Headache History: Denies prior headaches. General: Appears in no apparent distress. hj uncomfortable, Behavior is calm, cooperative, appropriate for age. Pain: Complains of pain in head, abdomen Pain currently is 7 out of 10 on a pain scale. Pain began 4 hours ago. Also complains of nausea. Neuro: Level of Consciousness is awake, alert, obeys commands, Oriented to person, place, time, situation, Appropriate for age. 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 - Social history:: Smoking status: Patient/guardian denies using tobacco, Patient/guardian denies using alcohol. - Ebola Screening: : Patient negative for fever greater than or equal to 101.5 degrees Fahrenheit, and additional compatible Ebola Virus Disease symptoms Patient denies exposure to infectious person Patient denies travel to an Ebola-affected area in the 21 days before illness onset. Screenin:40 Abuse screen: Denies threats or abuse. Denies injuries from another. Nutritional hj screening: No deficits noted. Tuberculosis screening: No symptoms or risk factors identified. Fall Risk None identified. Assessment: 15:06 General: Appears uncomfortable, Behavior is calm, cooperative. Pain: Complains of pain ed1 in right ear and abdomen Pain currently is 7 out of 10 on a pain scale. Pain began 1 hour ago. Neuro: Level of Consciousness is awake, alert, obeys commands, Oriented to person, place, time, situation, Reports numbness in right side of face. Cardiovascular: Denies chest pain, Heart tones S1 S2 present. Respiratory: Airway is patent Respiratory effort is even, unlabored, Respiratory pattern is regular, symmetrical, Breath sounds are clear bilaterally. GI: Abdomen is non-distended, Bowel sounds present X 4 quads. Abd is soft and non tender X 4 quads. Reports lower abdominal pain. : Reports urinary frequency. EENT: Reports pain in right ear. Derm: Skin is intact, is healthy with good turgor, Skin is dry, Skin is normal, Skin temperature is warm. Musculoskeletal: Circulation, motion, and sensation intact. 17:07 Reassessment: Patient appears in no apparent distress at this time. No changes from ed1 previously documented assessment. Patient and/or family updated on plan of care and expected duration. Pain level reassessed. Patient is alert, oriented x 3, equal unlabored respirations, skin warm/dry/pink. Pt refused medications. Vital Signs: 14:41 BP 114 / 75; Pulse 122; Resp 18; Temp 99.2(O); Pulse Ox 97% on R/A; Weight 77.11 kg; hj Height 5 ft. 4 in. (162.56 cm); Pain 7/10; 17:07 BP 121 / 78; Pulse 98; Resp 16; Pulse Ox 100% on R/A; Pain 6/10; ed1 14:41 Body Mass Index 29.18 (77.11 kg, 162.56 cm) ED Course: 14:34 Patient arrived in ED. mr 14:34 Jesus Pinedo MD is Private Physician. mr 14:39 Triage completed. hj 14:41 Arm band placed on right wrist. hj 14:42 Patient has correct armband on for positive identification. Placed in gown. Bed in low hj position. Call light in reach. Side rails up X 1. 14:44 Alba Cruz RN is Primary Nurse. ed1 14:45 Senthil Slade MD is Attending Physician. kdr 15:37 Radiology exam delayed due to lab results not completed at this time. (BUN/Creatinine). vm2 16:03 Missed attempt(s): 20 gauge in right antecubital area. Bleeding controlled, band aid ms applied, catheter tip intact. Inserted saline lock: 22 gauge in right antecubital area, using aseptic technique. 16:55 CT Abd/Pelvis - W/Contrast In Process Unspecified. EDMS 17:28 Jesus Pinedo MD is Referral Physician. kdr 17:48 No provider procedures requiring assistance completed. IV discontinued, intact, ed1 bleeding controlled, No redness/swelling at site. Pressure dressing applied. Administered Medications: 15:48 Not Given (Patient Refused): Zofran 4 mg IVP once; over 2 minutes ed1 15:48 Not Given (Patient Refused): Pepcid 20 mg IVP once ed1 16:00 Drug: NS 0.9% 1000 ml Route: IV; Rate: 1 bolus; Site: right antecubital; ed1 17:49 Follow up: IV Status: Completed infusion; IV Intake: 1000ml ed1 17:30 Drug: Tylenol 1000 mg Route: PO; ed1 17:49 Follow up: Response: No adverse reaction ed1 Intake: 17:49 IV: 1000ml; Total: 1000ml. ed1 Outcome: 17:38 Discharge ordered by . kdr 17:48 Discharged to home ambulatory, with family. ed1 17:48 Condition: good 17:48 Discharge instructions given to patient, Instructed on discharge instructions, follow up and referral plans. medication usage, Demonstrated understanding of instructions, follow-up care, medications, Prescriptions given X 4. 17:50 Patient left the ED. ed1 Signatures: Dispatcher [employer] EDME Senthil Slade MD MD kdr Rivera, Mary mr SolisAntonietta ms Alba Cruz RN RN ed1 Marty Rockwell RN RN Jessy Harris 2 Corrections: (The following items were deleted from the chart) 14:43 14:41 Pulse 137bpm; Resp 18bpm; Pulse Ox 97% RA; Temp 99.2F Oral; 77.11 kg; Height 5 hj ft. 4 in.; BMI: 29.1; Pain 7/10; hj
[2018-04-16] MEDS ORDERED: ACETAMINOPHEN 500 MG TAB ONE (17:39)
== END 2018-04-16 17:50 | disposition home or self-care (01) ==
LOC: ER 14:31
DX: R10.2 Pelvic and perineal pain (principal); F90.9 Attention-deficit hyperactivity disorder, unspecified type; Z91.048 Other nonmedicinal substance allergy status
CPT/HCPCS: 36415; 74177; 80048; 80076; 81003; 83690; 85025; 96360; 96361; 99284; J2405; J7030; Q9967

== ENCOUNTER 2018-08-05 00:44 | Emergency (ER) | payer OTHER ==
[2018-08-05 01:59] LABS: Absolute Lymphocytes (CBC) 2.4 K/uL (0.7-4.9); Basophils % 0.4 % (0-1.3); Eosinophils % 0.9 % (0-4.4); Hematocrit 42.3 % (36.0-45.0); Lymphocytes % 35.9 % (15.3-44.8); MPV 9.3 fL (7.6-11.3); Monocytes % 8.8 % (3.3-12.3); Protime INR 0.96; RBC Red Blood Cell Count 4.87 M/uL (3.86-4.86)
[2018-08-05 02:24] LABS: ALT/SGPT 22 U/L (12-78); AST/SGOT 14 U/L (15-37); Albumin 4.1 g/dL (3.4-5.0); Alkaline Phosphatase 46 U/L (45-117); BUN Blood Urea Nitrogen 15 mg/dL (7-18); Bicarbonate 28 mmol/L (21-32); Bilirubin Direct < 0.1 mg/dL (0-0.2); Bilirubin Total 0.4 mg/dL (0.2-1.0); Glucose Level 97 mg/dL (74-106); Magnesium 2.3 mg/dL (1.8-2.4); NT PRO-BNP 15 pg/mL (<125); Protein, Total 7.7 g/dL (6.4-8.2); Sodium Level 141 mmol/L (136-145); Troponin (Emerg Dept Use Only) < 0.02 ng/mL (0.0-0.045)
[2018-08-05 03:47] LABS: Urine Blood TRACE (NEG); Urine Glucose NEGATIVE (NEG); Urine Protein NEGATIVE (NEG); Urine Specific Gravity 1.015 (1.005-1.030); Urine pH 5.5 (5.0-7.0)
--- NOTE | 2018-08-05 04:10 | ER ---
Nurse's Notes [facility] Name: Lisa Damian Age: 32 yrs Sex: Female : 1985 Arrival Date: 08/05/2018 Time: 00:51 Bed 20 Private MD: Jesus Pinedo Diagnosis: Palpitations;Lower abdominal pain, unspecified Presentation: 08/05 01:03 Presenting complaint: Patient states: "My face has been getting hot every so often for lp1 the past month and then goes away, but tonight it's lasted longer"; States pain to RLQ of abdomen for the past week but worsening; Denies any N/V/D. Transition of care: patient was not received from another setting of care. Onset of symptoms was August 05, 2018. Risk Assessment: Do you want to hurt yourself or someone else? Patient reports no desire to harm self or others. Initial Sepsis Screen: Does the patient meet any 2 criteria? No. Patient's initial sepsis screen is negative. Does the patient have a suspected source of infection? No. Patient's initial sepsis screen is negative. Care prior to arrival: None. 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 - Social history:: Smoking status: Patient/guardian denies using tobacco. - Ebola Screening: : No symptoms or risks identified at this time. Screenin:42 Abuse screen: Denies threats or abuse. Denies injuries from another. Nutritional lp1 screening: No deficits noted. Tuberculosis screening: No symptoms or risk factors identified. Fall Risk None identified. Assessment: 01:09 General: Appears in no apparent distress. Behavior is calm, cooperative, appropriate lp1 for age. Pain: Complains of pain in right inguinal area Pain currently is 6 out of 10 on a pain scale. Quality of pain is described as aching. Neuro: Level of Consciousness is awake, alert, obeys commands. Cardiovascular: Patient's skin is warm and dry. Respiratory: Respiratory effort is even, unlabored. GI: Abdomen is non-distended, Bowel sounds present X 4 quads. Abdomen is tender to palpation in right lower quadrant. : No signs and/or symptoms were reported regarding the genitourinary system. EENT: No deficits noted. Derm: Skin is pink, warm \\T\\ dry. Musculoskeletal: No deficits noted. 02:01 Reassessment: Patient appears in no apparent distress at this time. No changes from lp1 previously documented assessment. Patient is alert, oriented x 3, equal unlabored respirations, skin warm/dry/pink. 03:29 Reassessment: Patient returned from CT at this time. lp1 04:17 Reassessment: Patient appears in no apparent distress at this time. Patient is alert, lp1 oriented x 3, equal unlabored respirations, skin warm/dry/pink. Vital Signs: 01:06 BP 123 / 73; Pulse 104; Resp 16; Temp 98.9(O); Pulse Ox 100% on R/A; Weight 79.38 kg; lp1 Height 5 ft. 4 in. (162.56 cm); Pain 6/10; 02:00 BP 119 / 79; Pulse 87; Resp 16; Pulse Ox 100% on R/A; lp1 04:18 BP 120 / 75; Pulse 85; Resp 18; Pulse Ox 100% on R/A; lp1 01:06 Body Mass Index 30.04 (79.38 kg, 162.56 cm) lp1 ED Course: 00:51 Patient arrived in ED. es 00:52 Jesus Pinedo MD is Private Physician. es 00:59 [facility]. jmm 00:59 Nicanor Sotomayor MD is Attending Physician. jmm 01:02 Maddy Billings, RACHELL is Primary Nurse. lp1 01:06 Triage completed. lp1 01:06 Arm band placed on left wrist. lp1 01:30 Initial lab(s) drawn, by me, sent to lab. lp1 01:43 Patient has correct armband on for positive identification. lp1 01:54 XRAY Chest (1 view) In Process Unspecified. EDMS 02:01 EKG done, by ED staff, reviewed by Ger LEPE. lp1 02:09 No provider procedures requiring assistance completed. Inserted saline lock: 20 gauge rr5 in left antecubital area, using aseptic technique. 03:46 CT completed. Patient tolerated procedure well. Patient moved to CT via wheelchair. Patient moved back from CT. 03:48 CT Chest For PE Angio In Process Unspecified. EDMS 03:49 CT Abd/Pelvis - IV Contrast Only In Process Unspecified. EDMS 04:10 Yemi Jennings MD is Referral Physician. fred 04:14 Removal of peripheral IV. Catheter intact, dressing applied. ag4 04:18 IV discontinued. lp1 Administered Medications: No medications were administered Outcome: 04:10 Discharge ordered by . fred 04:19 Discharged to home ambulatory. lp1 04:19 Condition: good 04:19 Discharge instructions given to patient, Instructed on discharge instructions, follow up and referral plans. medication usage, Demonstrated understanding of instructions, follow-up care, medications, Prescriptions given X 1. 04:19 Patient left the ED. lp1 Signatures: Dispatcher [employer] EDDC Nicanor Sotomayor MD MD cha Mickail, Joel, PA PA jmm Salyer, Edna es Hagler, Ervin Maddy Billings, RN RN lp1 Jean Carlos Key RN RN rr5 Bigg Suárez ag4
--- NOTE | 2018-08-05 04:11 | EDPHYS ---
Physician Documentation [facility] Name: Lisa Damian Age: 32 yrs Sex: Female : 1985 Arrival Date: 08/05/2018 Time: 00:51 Bed 20 Private MD: Jesus Pinedo ED Physician Nicanor Sotomayor HPI: 08/05 00:59 This 32 yrs old Female presents to ER via Ambulatory with complaints of jmm Abdominal Pain, cold then hot. 00:59 The patient presents with abdominal pain right lower quadrant. Onset: The jmm symptoms/episode began/occurred gradually. This is a 32 year old female with a history of ADD/ADHD that presents to the ED with complaints of ongoing right lower abdominal pain beginning 1 week ago. Patient states having ongoing warm to her face over the past month. This evening the patient developed palpations and shortness of breath while attempting to sleep. patient has had similar episodes of palpitations which were evaluated by cardiology with no diagnosis. . 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 - Social history:: Smoking status: Patient/guardian denies using tobacco. - Ebola Screening: : No symptoms or risks identified at this time. ROS: 00:59 Constitutional: Negative for fever, chills, and weight loss. jmm 00:59 Cardiovascular: Positive for palpitations. 00:59 Respiratory: Positive for shortness of breath. 00:59 Abdomen/GI: Positive for abdominal pain. 00:59 All other systems are negative. Exam: 00:59 Constitutional: This is a well developed, well nourished patient who is awake, alert, jmm and in no acute distress. Head/Face: atraumatic. Eyes: EOMI, no conjunctival erythema appreciated ENT: Moist Mucus Membranes Neck: Trachea midline, Supple Chest/axilla: Normal chest wall appearance and motion. 00:59 Cardiovascular: Rate: normal, Rhythm: regular. 00:59 Respiratory: the patient does not display signs of respiratory distress, Respirations: normal, Breath sounds: are clear throughout. 00:59 Abdomen/GI: Inspection: abdomen appears normal, Bowel sounds: normal, Palpation: soft, mild abdominal tenderness, in the right lower quadrant. 00:59 Back: pain, is absent, ROM is normal, normal spinal alignment noted. 00:59 Musculoskeletal/extremity: ROM: intact in all extremities. 00:59 Skin: Appearance: Color: normal in color. 00:59 Neuro: Orientation: is normal, Mentation: is normal, Memory: is normal. 00:59 Psych: Behavior/mood is pleasant, cooperative. 02:42 ECG was reviewed by the Attending Physician. [facility] Vital Signs: 01:06 BP 123 / 73; Pulse 104; Resp 16; Temp 98.9(O); Pulse Ox 100% on R/A; Weight 79.38 kg; lp1 Height 5 ft. 4 in. (162.56 cm); Pain 6/10; 02:00 BP 119 / 79; Pulse 87; Resp 16; Pulse Ox 100% on R/A; lp1 04:18 BP 120 / 75; Pulse 85; Resp 18; Pulse Ox 100% on R/A; lp1 01:06 Body Mass Index 30.04 (79.38 kg, 162.56 cm) lp1 MDM: 00:59 Patient medically screened. fred 02:42 Data reviewed: vital signs, nurses notes. Transition of care: After a detail discussion [facility] of the patient's case, care is transferred to Nicanor Sotomayor MD. 08/05 01:03 Order name: Basic Metabolic Panel; Complete Time: 02:38 [facility] 08/05 01:03 Order name: CBC with Diff [facility] 08/05 01:03 Order name: LFT's [facility] 08/05 01:03 Order name: Magnesium [facility] 08/05 01:03 Order name: NT PRO-BNP [facility] 08/05 01:03 Order name: PT-INR [facility] 08/05 01:03 Order name: Troponin (emerg Dept Use Only) [facility] 08/05 01:03 Order name: D-Dimer [facility] 08/05 01:07 Order name: Liver (Hepatic) Function; Complete Time: 02:38 EDMS 08/05 01:07 Order name: Magnesium; Complete Time: 02:38 EDNC 08/05 01:07 Order name: TSH [facility] 08/05 02:03 Order name: CBC with Automated Diff; Complete Time: 02:38 [facility] 08/05 02:03 Order name: Protime (+INR); Complete Time: 02:38 [facility] 08/05 02:26 Order name: Troponin (Emerg Dept Use Only); Complete Time: 02:38 [facility] 08/05 01:03 Order name: XRAY Chest (1 view) [facility] 08/05 01:03 Order name: EKG; Complete Time: 01:07 [facility] 08/05 01:03 Order name: Cardiac monitoring; Complete Time: 02:00 [facility] 08/05 01:03 Order name: EKG - Nurse/Tech; Complete Time: 02:00 [facility] 08/05 01:03 Order name: IV Saline Lock; Complete Time: 02:10 [facility] 08/05 01:03 Order name: Labs collected and sent; Complete Time: 01:45 [facility] 08/05 01:03 Order name: O2 Per Protocol; Complete Time: 01:45 [facility] 08/05 01:03 Order name: O2 Sat Monitoring; Complete Time: 01:45 [facility] 08/05 01:16 Order name: CT Chest For PE Angio [facility] 08/05 01:16 Order name: CT Abd/Pelvis - IV Contrast Only [facility] 08/05 02:26 Order name: NT PRO-BNP; Complete Time: 02:38 [facility] 08/05 02:26 Order name: Thyroid Stimulating Hormone; Complete Time: 02:38 [facility] 08/05 02:57 Order name: Urine Culture [facility] 08/05 03:01 Order name: Urine Culture [facility] 08/05 03:20 Order name: Urine Dipstick--Ancillary (enter results) [facility] 08/05 03:20 Order name: Urine --Ancillary (enter results) [facility] 08/05 02:55 Order name: Urine Dipstick-Ancillary (obtain specimen); Complete Time: 03:27 [facility] 08/05 02:55 Order name: Urine Test (obtain specimen); Complete Time: 03:27 [facility] EC:42 Rate is 76 beats/min. Rhythm is regular. QRS [place] is Normal. [place] interval is normal. QRS jmm interval is normal. QT interval is normal. No Q waves. T waves are Normal. No ST changes noted. Administered Medications: No medications were administered Disposition: 08:22 Co-signature as Attending Physician, Nicanor DIAMOND I agree with the assessment and [facility] plan of care. Disposition: 08/05/18 04:10 Discharged to Home. Impression: Palpitations, Lower abdominal pain, unspecified. - Condition is Stable. - Discharge Instructions: Abdominal Pain, Adult, Wnmz-[id number], Palpitations, Nytq-no-Khdj, Abdominal Pain, Adult, Palpitations. - Prescriptions for Bentyl 20 mg Oral Tablet - take 1 tablet by ORAL route every 6 hours As needed; 20 tablet. - Medication Reconciliation Form, Thank You Letter, Antibiotic Education, Prescription Opioid Use form. - Follow up: Yemi Jennings; When: 2 - 3 days; Reason: Recheck today's complaints, Continuance of care, Re-evaluation by your physician. - Problem is new. - Symptoms have improved. Signatures: Dispatcher [employer] EDNicanor Sandoval MD MD cha Mickail, Joel, PA PA Maddy Argutea, RN RN lp1 Corrections: (The following items were deleted from the chart) 04: 04:10 08/05/2018 04:10 Discharged to Home. Impression: Palpitations; Lower abdominal lp1 pain, unspecified. Condition is Stable. Discharge Instructions: Abdominal Pain, Adult, Palpitations, Abdominal Pain, Adult, [id number], Palpitations, [id number]-[id number]-Gxdj. Prescriptions for Bentyl 20 mg Oral Tablet - take 1 tablet by ORAL route every 6 hours As needed; 20 tablet. and Forms are Medication Reconciliation Form, Thank You Letter, Antibiotic Education, Prescription Opioid Use. Follow up: Yemi Jennings; When: 2 - 3 days; Reason: Recheck today's complaints, Continuance of care, Re-evaluation by your physician. Problem is new. Symptoms have improved. fred
--- NOTE | 2018-08-05 07:32 | EKG ---
Test Date: 2018-08-05 Test Time: 01:56:35 Nail Expert: PABLO MEASUREMENT RESULTS: Intervals: Rate: 76 MS: 148 QRSD: 88 QT: 382 QTc: 429 [place]: P: 70 MS: 148 QRS: 78 T: 50 INTERPRETIVE STATEMENTS: Normal sinus rhythm Normal ECG Compared to ECG 05/01/2017 16:03:34 Sinus arrhythmia no longer present Electronically Signed On 08-05-18 07:32:10 CDT by Yemi Jennings
--- NOTE | 2018-08-05 08:41 | RAD REPORT ---
EXAM DESCRIPTION: RAD - Chest Single View - 08/05/2018 1:52 am CLINICAL HISTORY: Shortness of breath COMPARISON: April 2017 TECHNIQUE: AP portable chest image was obtained 0125 hours . FINDINGS: Lungs are clear. Heart and vasculature are normal. No measurable pleural effusion and no p neumothorax. No acute bony abnormality seen. No acute aortic findings suspected. IMPRESSION: No acute cardiopulmonary process. No significant change from comparison.
--- NOTE | 2018-08-05 10:34 | RAD REPORT ---
EXAM DESCRIPTION: CT - Chest For Pe Angio - 08/05/2018 6:34 am CLINICAL HISTORY: The patient is 32 years old and is Female; shortness of breath TECHNIQUE: Axial computed tomographic angiography images of the chest with intravenous contrast usin g pulmonary embolism protocol. Sagittal and coronal reformatted images were created and reviewed. This CT exam was performed using one or more of the following dose reduction techniques: automated exposure control, adjustment of the mA and/or kV according to patient size, and/or use of iterative reconstruction technique. MIP reconstructed images were created and reviewed. COMPARISON: CTA of the chest July 17, 2016. FINDINGS: ARTIFACTS: The exam is suboptimal secondary to motion artifact. PULMONARY ARTERIES: There are no obvious filling defects identified within the pulmonary arterie s to suggest pulmonary embolism. AORTA: No acute findings. No thoracic aortic aneurysm. LUNGS: Unremarkable. No mass. No consolidation. PLEURAL SPACE: Unremarkable. No significant effusion. No pneumothorax. HEART: Unremarkable. No cardiomegaly. No significant pericardial effusion. No evidence of RV dysfunction. BONES/JOINTS: No acute fracture. No dislocation. SOFT TISSUES: The previously demonstrated soft tissue mass within the posterior aspect of left b reast measuring 1.7 cm is again noted. This has slightly decreased in size since prior exam. The soft tissue mass within the posterior aspect of the right breast is redemonstrated measuring approximatel y 2.6 cm and grossly unchanged. There has been development of a small 1.7 cm rounded soft tissue mass along the inferior posterior aspect of the left breast. LYMPH NODES: Unremarkable. No enlarged lymph nodes. IMPRESSION: 1. No evidence of pulmonary embolism. 2. At least 3 soft tissue nodules within the breasts bilaterally as described. 2 of which are simil ar in size and appearance. 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 However, recommend dedicate d diagnostic breast ultrasound. Electronically signed by: Nancy Dickerson MD 08/05/2018 4:02 AM CDT Due to temporary technical issues with the PACS/Fluency reporting system, reports are being signed by the in house radiologist as a courtesy to ensure prompt reporting. The interpreting radiologist is f ully responsible for the content of the report.
--- NOTE | 2018-08-05 10:36 | RAD REPORT ---
EXAM DESCRIPTION: CT - Abdomen Pelvis W Contrast - 08/05/2018 6:34 am CLINICAL HISTORY: The patient is 32 years old and is Female; right lower abdominal pain TECHNIQUE: Axial computed tomography images of the abdomen and pelvis with intravenous contrast. S agittal and coronal reformatted images were created and reviewed. This CT exam was performed using one or more of the following dose reduction techniques: automated exposure control, adjustment of t he mA and/or kV according to patient size, and/or use of iterative reconstruction technique. COMPARISON: CT of the abdomen and pelvis April 16, 2018. FINDINGS: LUNG BASES: Unremarkable. No mass. No consolidation. ABDOMEN: LIVER: Unremarkable. No mass. GALLBLADDER AND BILE DUCTS: Surgical clips are present in the right upper quadrant, consistent w ith previous cholecystectomy. Mild biliary dilatation is present. PANCREAS: No ductal dilation. No mass. SPLEEN: Unremarkable. ADRENALS: Unremarkable. No mass. KIDNEYS AND URETERS: Unremarkable. No solid mass. No hydronephrosis. STOMACH AND BOWEL: The stomach is minimally fluid filled. The small bowel is normal in caliber. Stool is present throughout the colon. There is no mucosal thickening or evidence of bowel obstructio n. PELVIS: APPENDIX: The appendix is not definitively visualized. However, there are no inflammatory changes seen at the expected location of the appendix to suggest appendicitis. BLADDER: The bladder is not well distended. REPRODUCTIVE: An IUD is in place. The uterus and ovaries are unremarkable. ABDOMEN and PELVIS: INTRAPERITONEAL SPACE: Unremarkable. No free air. No significant fluid collection. BONES/JOINTS: No acute fracture. SOFT TISSUES: The soft tissues are normal. VASCULATURE: Unremarkable. No abdominal aortic aneurysm. LYMPH NODES: Unremarkable. No enlarged lymph nodes. IMPRESSION: No acute findings on this contrasted CT of the abdomen and pelvis to explain the patient 's symptoms. Electronically signed by: Nancy Dickerson MD 08/05/2018 3:57 AM CDT Due to temporary technical issues with the PACS/Fluency reporting system, reports are being signed by the in house radiologist as a courtesy to ensure prompt reporting. The interpreting radiologist is f ully responsible for the content of the report.
== END 2018-08-05 04:19 | disposition home or self-care (01) ==
LOC: ER 00:44
DX: R00.2 Palpitations (principal); F90.9 Attention-deficit hyperactivity disorder, unspecified type; Z91.048 Other nonmedicinal substance allergy status
CPT/HCPCS: 36415; 71045; 71275; 74177; 80048; 80076; 81003; 81025; 83735; 83880; 84443; 84484; 85025; 85610; 87086; 87088; 93005; 99284; Q9967

== ENCOUNTER 2018-11-12 14:46 | Emergency (ER) | payer OTHER ==
[2018-11-12 16:19] LABS: Absolute Lymphocytes (CBC) 2.3 K/uL (0.7-4.9); Basophils % 0.4 % (0-1.3); Hematocrit 41.5 % (36.0-45.0); Lymphocytes % 28.9 % (15.3-44.8); MPV 9.6 fL (7.6-11.3); RBC Red Blood Cell Count 4.79 M/uL (3.86-4.86)
[2018-11-12 16:39] LABS: ALT/SGPT 19 U/L (12-78); AST/SGOT 17 U/L (15-37); Albumin 4.4 g/dL (3.4-5.0); Alkaline Phosphatase 54 U/L (45-117); BUN Blood Urea Nitrogen 11 mg/dL (7-18); Bicarbonate 26 mmol/L (21-32); Bilirubin Direct 0.1 mg/dL (0-0.2); Bilirubin Total 0.5 mg/dL (0.2-1.0); CKMB Creatine Kinase MB < 1.0 ng/mL (0.3-3.6); Creatine Phosphokinase 82 U/L (26-192); Glucose Level 87 mg/dL (74-106); Lipase 98 U/L (73-393); Magnesium 2.1 mg/dL (1.8-2.4); Potassium 4.1 mmol/L (3.5-5.1); Sodium Level 139 mmol/L (136-145); Troponin (Emerg Dept Use Only) < 0.02 ng/mL (0.0-0.045)
[2018-11-12 16:40] LABS: Urine Blood TRACE (NEG); Urine Glucose NEGATIVE (NEG); Urine Protein NEGATIVE (NEG)
--- NOTE | 2018-11-12 16:56 | ER ---
Nurse's Notes [facility] Name: Lisa Damian Age: 33 yrs Sex: Female : 1985 Arrival Date: 11/12/2018 Time: 14:49 Bed 25 Private MD: Jesus Pinedo Diagnosis: Weakness Presentation: 11/12 15:03 Presenting complaint: Patient states: "My stomach started hurting and I've been having aj1 some pain in my neck and I went to stretch my neck and it sent pain down my back, and then I got up and I started sweating really bad and felt like I was going to pass out. I sat down and then I was feeling better, so I went to the store, and then while I was there I started to feel like I was going to pass out again". Transition of care: patient was not received from another setting of care. Onset of symptoms was November 12, 2018 at 13:00. Risk Assessment: Do you want to hurt yourself or someone else? Patient reports no desire to harm self or others. Initial Sepsis Screen: Does the patient meet any 2 criteria? No. Patient's initial sepsis screen is negative. Does the patient have a suspected source of infection? No. Patient's initial sepsis screen is negative. Care prior to arrival: None. 15:03 Method Of Arrival: Ambulatory aj1 15:03 Acuity: DEAN 3 aj1 Triage Assessment: 15:07 General: Appears in no apparent distress. comfortable, Behavior is calm, cooperative, aj1 appropriate for age. Pain: Pain currently is 7 out of 10 on a pain scale. Neuro: Level of Consciousness is awake, alert, obeys commands. Cardiovascular: Patient's skin is warm and dry. Respiratory: Airway is patent Respiratory effort is even, unlabored, Respiratory pattern is regular, symmetrical. 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 - Social history:: Smoking status: Patient/guardian denies using tobacco. - Ebola Screening: : Patient denies travel to an Ebola-affected area in the 21 days before illness onset. Screenin:21 Abuse screen: Denies threats or abuse. Denies injuries from another. Nutritional mg2 screening: No deficits noted. Tuberculosis screening: No symptoms or risk factors identified. Fall Risk IV access (20 points). Assessment: 16:30 General: Appears in no apparent distress. comfortable, Behavior is calm, cooperative. mg2 Pain: Denies pain. Neuro: Level of Consciousness is awake, alert, obeys commands, Oriented to person, place, time, situation. Cardiovascular: Capillary refill < 3 seconds Patient's skin is warm and dry. Respiratory: Airway is patent Respiratory effort is even, unlabored, Respiratory pattern is regular, symmetrical. GI: No signs and/or symptoms were reported involving the gastrointestinal system. : No signs and/or symptoms were reported regarding the genitourinary system. EENT: No signs and/or symptoms were reported regarding the EENT system. Derm: Skin is intact, is healthy with good turgor, Skin is pink, warm \\T\\ dry. normal. Musculoskeletal: Circulation, motion, and sensation intact. Capillary refill < 3 seconds. 16:30 Neuro: Reports near syncopal attack today. mg2 Vital Signs: 15:07 BP 127 / 87; Pulse 91; Resp 18; Temp 97.9; Pulse Ox 100% on R/A; Weight 77.11 kg (R); aj1 Height 5 ft. 4 in. (162.56 cm) (R); Pain 7/10; 16:26 BP 122 / 80 Supine; Pulse 85; Resp 18; Pulse Ox 100% on R/A; mg2 16:26 BP 127 / 94 Sitting; Pulse 82; Resp 18; Pulse Ox 100% on R/A; mg2 16:26 BP 128 / 80 Standing; Pulse 89; Resp 18; Pulse Ox 98% on R/A; mg2 17:09 BP 122 / 78; Pulse 81; Resp 18; Pulse Ox 100% on R/A; mg2 15:07 Body Mass Index 29.18 (77.11 kg, 162.56 cm) aj1 ED Course: 14:49 Patient arrived in ED. mr 14:49 Jesus Pinedo MD is Private Physician. mr 14:54 [facility]C [facility]. kb 14:54 Ranjith Santacruz MD is Attending Physician. kb 15:06 Triage completed. aj1 15:07 Arm band placed on Patient placed in an exam room. aj1 15:10 Roberto José, RN is Primary Nurse. mg2 16:04 EKG done, by fibre technologist. reviewed by Ranjith Santacruz MD. sm3 16:23 No provider procedures requiring assistance completed. Inserted saline lock: 20 gauge mg2 in left antecubital area, using aseptic technique. Blood collected. 16:24 Patient has correct armband on for positive identification. Pulse ox on. NIBP on. Door mg2 closed. Warm blanket given. 17:10 IV discontinued, intact, bleeding controlled, No redness/swelling at site. Pressure mg2 dressing applied. Administered Medications: 17:08 Not Given (Patient Refused): NS 0.9% 1000 ml IV at 1000 ml once mg2 Point of Care Testing: Blood Glucose: 15:46 Blood Glucose: 99 mg/dL; mg2 Ranges: Outcome: 16:54 Discharge ordered by MD. kb 17:09 Discharged to home ambulatory. mg2 17:09 Condition: stable 17:09 Discharge instructions given to patient, Instructed on discharge instructions, follow up and referral plans. Demonstrated understanding of instructions, follow-up care. 17:10 Patient left the ED. mg2 Signatures: Angy Alicia, SENIOR APPLICATIONS ANALYST-C SENIOR APPLICATIONS ANALYST-CkYina Guthrie, RN RN aj1 Michelle Bailey mr Roberto José, RN RN mg2 Zoë Stephen 3
--- NOTE | 2018-11-12 16:57 | EDPHYS ---
Physician Documentation [facility] Name: Lisa Damian Age: 33 yrs Sex: Female : 1985 Arrival Date: 11/12/2018 Time: 14:49 Bed 25 Private MD: Jesus Pinedo ED Physician Ranjith Santacruz HPI: 11/12 15:59 This 33 yrs old Female presents to ER via Ambulatory with complaints of Near kb Syncope. 16:04 The patient presents with feeling faint, generalized weakness. Onset: The kb symptoms/episode began/occurred today. Context: occurred at home, at a store, occurred while the patient was standing, walking, just prior to the episode the patient experienced no apparent symptoms. Modifying factors: The symptoms are alleviated by nothing. Associated signs and symptoms: Pertinent positives: nausea. Severity of symptoms: At their worst the symptoms were moderate in the emergency department the symptoms are unchanged. Patient's baseline: Neuro: alert and fully oriented, Motor: no deficits, Ambulation: walks without assistance, Speech: normal. The patient has not experienced similar symptoms in the past. The patient has not recently seen a physician. 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 - Social history:: Smoking status: Patient/guardian denies using tobacco. - Ebola Screening: : Patient denies travel to an Ebola-affected area in the 21 days before illness onset. ROS: 16:02 Constitutional: Negative for fever, chills, and weight loss, ENT: Negative for injury, kb pain, and discharge, Neck: Negative for injury, pain, and swelling, Cardiovascular: Negative for chest pain, palpitations, and edema, Respiratory: Negative for shortness of breath, cough, wheezing, and pleuritic chest pain, Abdomen/GI: Negative for abdominal pain, vomiting, diarrhea, and constipation. +nausea Back: Negative for injury and pain, MS/Extremity: Negative for injury and deformity, Skin: Negative for injury, rash, and discoloration. 16:02 Neuro: Positive for near syncope, weakness. Exam: 16:02 Constitutional: This is a well developed, well nourished patient who is awake, alert, kb and in no acute distress. Head/Face: Normocephalic, atraumatic. Eyes: Pupils equal round and reactive to light, extra-ocular motions intact. Lids and lashes normal. Conjunctiva and sclera are non-icteric and not injected. Cornea within normal limits. Periorbital areas with no swelling, redness, or edema. ENT: Nares patent. No nasal discharge, no septal abnormalities noted. Tympanic membranes are normal and external auditory canals are clear. Oropharynx with no redness, swelling, or masses, exudates, or evidence of obstruction, uvula midline. Mucous membranes moist. Neck: Trachea midline, no thyromegaly or masses palpated, and no cervical lymphadenopathy. Supple, full range of motion without nuchal rigidity, or vertebral point tenderness. No Meningismus. Chest/axilla: Normal chest wall appearance and motion. Nontender with no deformity. No lesions are appreciated. Cardiovascular: Regular rate and rhythm with a normal S1 and S2. No gallops, murmurs, or rubs. Normal PMI, no JVD. No pulse deficits. Respiratory: Lungs have equal breath sounds bilaterally, clear to auscultation and percussion. No rales, rhonchi or wheezes noted. No increased work of breathing, no retractions or nasal flaring. Abdomen/GI: Soft, non-tender, with normal bowel sounds. No distension or tympany. No guarding or rebound. No evidence of tenderness throughout. Skin: Warm, dry with normal turgor. Normal color with no rashes, no lesions, and no evidence of cellulitis. MS/ Extremity: Pulses equal, no cyanosis. Neurovascular intact. Full, normal range of motion. Neuro: Awake and alert, GCS 15, oriented to person, place, time, and situation. Cranial nerves II-XII grossly intact. Motor strength 5/5 in all extremities. Sensory grossly intact. Cerebellar exam normal. Normal gait. Vital Signs: 15:07 BP 127 / 87; Pulse 91; Resp 18; Temp 97.9; Pulse Ox 100% on R/A; Weight 77.11 kg (R); aj1 Height 5 ft. 4 in. (162.56 cm) (R); Pain 7/10; 16:26 BP 122 / 80 Supine; Pulse 85; Resp 18; Pulse Ox 100% on R/A; mg2 16:26 BP 127 / 94 Sitting; Pulse 82; Resp 18; Pulse Ox 100% on R/A; mg2 16:26 BP 128 / 80 Standing; Pulse 89; Resp 18; Pulse Ox 98% on R/A; mg2 17:09 BP 122 / 78; Pulse 81; Resp 18; Pulse Ox 100% on R/A; mg2 15:07 Body Mass Index 29.18 (77.11 kg, 162.56 cm) aj1 MDM: 15:24 Patient medically screened. kb 16:02 Data reviewed: vital signs, nurses notes. Data interpreted: Pulse oximetry: on room air kb is 100 %. Interpretation: normal. 16:50 Counseling: I had a detailed discussion with the patient and/or guardian regarding: the kb historical points, exam findings, and any diagnostic results supporting the discharge/admit diagnosis, lab results, the need for outpatient follow up, a family practitioner, to return to the emergency department if symptoms worsen or persist or if there are any questions or concerns that arise at home. 16:53 ED course: PT does not want IV fluids at this time. Needs to leave to get her son. kb STates she is feeling better. Will return for worsening symptoms, fever, or other concerns. . 11/12 15:44 Order name: Basic Metabolic Panel; Complete Time: 16:45 kb 11/12 15:44 Order name: CBC with Diff; Complete Time: 16:34 kb 11/12 15:44 Order name: Ckmb; Complete Time: 16:45 kb 11/12 15:44 Order name: CPK; Complete Time: 16:45 kb 11/12 15:44 Order name: Hepatic Function; Complete Time: 16:45 kb 11/12 15:44 Order name: Lipase; Complete Time: 16:45 kb 11/12 15:44 Order name: Magnesium; Complete Time: 16:45 kb 11/12 15:44 Order name: Troponin (emerg Dept Use Only); Complete Time: 16:45 kb 11/12 15:44 Order name: EKG; Complete Time: 15:45 kb 11/12 15:44 Order name: Cardiac monitoring; Complete Time: 16:07 kb 11/12 15:44 Order name: EKG - Nurse/Tech; Complete Time: 16:07 kb 11/12 16:34 Order name: Urine Dipstick--Ancillary (enter results); Complete Time: 16:45 eb 11/12 16:34 Order name: Urine --Ancillary (enter results); Complete Time: 16:45 eb 11/12 15:44 Order name: IV Saline Lock; Complete Time: 16:07 kb 11/12 15:44 Order name: Labs collected and sent; Complete Time: 16:08 kb 11/12 15:44 Order name: NPO; Complete Time: 16:08 kb 11/12 15:44 Order name: O2 Per Protocol; Complete Time: 16:08 kb 11/12 15:44 Order name: O2 Sat Monitoring; Complete Time: 16:08 kb 11/12 15:44 Order name: Urine Dipstick-Ancillary (obtain specimen); Complete Time: 16:18 kb 11/12 15:44 Order name: Orthostatics; Complete Time: 16:18 kb Administered Medications: 17:08 Not Given (Patient Refused): NS 0.9% 1000 ml IV at 1000 ml once mg2 Point of Care Testing: Blood Glucose: 15:46 Blood Glucose: 99 mg/dL; mg2 Ranges: Critical Glucose Levels:Adult <50 mg/dl or >400 mg/dl <40 mg/dl or >180 mg/dl Disposition: 18:32 Co-signature as Attending Physician, Ranjith Santacruz MD. rn Disposition: 11/12/18 16:54 Discharged to Home. Impression: Weakness. - Condition is Stable. - Discharge Instructions: Near-Syncope, [id number], Weakness, Krwh-[id number]. - Medication Reconciliation Form, Thank You Letter, Antibiotic Education, Prescription Opioid Use form. - Follow up: Emergency Department; When: As needed; Reason: Worsening of condition. Follow up: Private Physician; When: 2 - 3 days; Reason: Recheck today's complaints, Continuance of care, Re-evaluation by your physician. Signatures: Dispatcher [employer] Angy Woody, HEALTHCARE ACCOUNT MANAGER-C HEALTHCARE ACCOUNT MANAGER-CkYina Guthrie RN RN aj1 Ranjith Santacruz MD MD rn Gardose, Michele, RN RN mg2 Corrections: (The following items were deleted from the chart) 17:10 16:54 11/12/2018 16:54 Discharged to Home. Impression: Weakness. Condition is Stable. mg2 Forms are Medication Reconciliation Form, Thank You Letter, Antibiotic Education, Prescription Opioid Use. Follow up: Emergency Department; When: As needed; Reason: Worsening of condition. Follow up: Private Physician; When: 2 - 3 days; Reason: Recheck today's complaints, Continuance of care, Re-evaluation by your physician. kb
[2018-11-12 17:45] VITALS: TEMP 97.9
[2018-11-12 17:49] VITALS: BP 122/78; O2SAT 100
--- NOTE | 2018-11-13 07:20 | EKG ---
Test Date: 2018-11-12 Test Time: 16:01:36 Health Economist: SINAN MEASUREMENT RESULTS: Intervals: Rate: 82 SD: 142 QRSD: 90 QT: 384 QTc: 448 [place]: P: 74 SD: 142 QRS: 79 T: 57 INTERPRETIVE STATEMENTS: Normal sinus rhythm Normal ECG Compared to ECG 08/05/2018 01:56:35 No significant changes Electronically Signed On 11-13-18 07:19:35 CDT by Bruce Martell
== END 2018-11-12 17:10 | disposition home or self-care (01) ==
LOC: ER 14:46
DX: R53.1 Weakness (principal); F90.9 Attention-deficit hyperactivity disorder, unspecified type
CPT/HCPCS: 36415; 80048; 80076; 81003; 81025; 82550; 82553; 82962; 83690; 83735; 84484; 85025; 93005; 99284

== ENCOUNTER 2024-05-12 07:46 | Emergency (ER) | payer BC ==
--- OUTSIDE RECORDS SUMMARY | 2024-05-12 07:50 | XMS REPORT | Clinical Summary ---
Author Name Unknown Organization [facility] Address [address] [place] [address] Care Team Providers Care Psychiatric Lpn Name Role Phone Aidee Chamberlain Unavailable Dolly Truong MD Unavailable [phone] Kel Hendricks MD Primary Care Provider [phone] Allergies Active Allergy Reactions Criticality Noted Date Comments Adhesive Tape-Silicones 05/03/2020 Latex 05/03/2020 Medications dextroamphetamin e-amphetamine (ADDERALL XR) 30 mg 24 hr capsule Take 30 mg by mouth. 04/05/2020 Active hydroCHLOROthiaz vero (HYDRODIURIL) 12.5 mg tablet Take 12.5 mg by mouth. 02/13/2020 Active 21/iron fu/folic acid ( COMPLETE ORAL) Take by mouth. Active cholecalciferol, vitamin D3, 25 mcg (1,000 unit) capsule Take by mouth. Active ZINC ORAL Take by mouth. Active Active Problems Problem Noted Date Diagnosed Date Atypical chest pain 11/03/2014 Genital herpes simplex 08/15/2014 Overview (08/16/2020): ICD10 Diagnosis Term Bow Maker Custom Utility Overweight 08/15/2014 Overview (08/16/2020): ICD10 Diagnosis Term Bow Maker Custom Utility Hypertension Multiple cysts of breast Surgical History Surgery Date Site/Laterality Comments CHOLECYSTECTOMY N/A SECTION, LOW TRANSVERSE N/A OVARIAN CYST REMOVAL Right Medical History Medical History Date Comments Hypertension Herpes simplex type 2 infection Undifferentiated attention deficit disorder Multiple cysts of breast Family History Medical History Relation Name Comments Breast cancer Maternal Cousin Relation Name Status Comments Maternal Cousin Alive Social History Tobacco Use Types Packs/Day Years Used Date Smoking Tobacco: Former Cigarettes 0.3 5.4 2 008 - 07/17/2012 Smokeless Tobacco: Never Alcohol Use Standard Drinks/Week Comments Yes 0 (1 standard drink = 0.6 oz pur e alcohol) Less than 1 drink per week Comments Unknown Sex and Gender Information Value Date Recorded Sex Assigned at Not on file Legal Sex Female 12:32 PM CDT Gender Identity Not on file Sexual Orientation Not on file Obstetrics History Para Term AB IAB SAB Ectopic Multiple Livin g Live Births 3 3 Date Outcome GA Total Labor Labor/2nd/3rd Weight Sex Type Anes PTL Gianna A1 A5 Name Clin Para Para Para Comments Age of parity: 20 Age of menarche: 12 OCP: 3 then Mirena 4 years. Currently no contraceptive use HRT: None Fertility treatments: None : 0 Menopausal status: Pre Bra Size: 34C Plan of Treatment Health Maintenance Due Date Last Done Comments COVID-19 Vaccine (2023-2 5 season) 2023 Influenza Vaccine (#1) 2023 Pneumococcal Vaccine Aged Out No long er eligible based on patient's age to complete this topic Insurance O ([place]) [address] PPO Care Teams Psychiatric Lpn Relationship Specialty Start Date End Date Aidee Chamberlain [address] [place] [address] PCP - External Primary Care Provider 07/05/20 Dolly Truong MD [address] [place] [address] [email or web address] PCP - External Follow Up A Obstetrics/Gynecolog y 07/12/20 Kel Hendricks MD [address] [place] [address] [email or web address] PCP - General Breast Surgery 08/16/20
[2024-05-12] MEDS ORDERED: NA CHLORIDE 0.9% 1,000 ML ONE (08:16)
[2024-05-12] MEDS ORDERED: FAMOTIDINE 20 MG/2 ML VIAL IV ONE (08:16)
[2024-05-12] MEDS ORDERED: LIDOCAINE VISCOUS 2% 10ML ORAL SOLN ONE (08:16)
[2024-05-12] MEDS ORDERED: MAGNES/ALUMIN/SIMET 30ML UCUP ONE (08:16)
[2024-05-12] MEDS ORDERED: DICYCLOMINE HCL 10 MG CAP ONE (08:16)
[2024-05-12 08:19] LABS: Absolute Eosinophils 0.1 K/uL (0-0.5); Absolute Lymphocytes (CBC) 1.9 K/uL (0.7-4.9); Absolute Monocytes 0.6 K/uL (0.1-1.3); Absolute Neutrophil 3.6 K/uL (1.8-8.0); Basophils % 0.4 % (0-1.3); Eosinophils % 2.2 % (0-4.4); Hematocrit 40.9 % (36.0-45.0); Hemoglobin 14.4 g/dL (12.0-15.0); Lymphocytes % 30.5 % (15.3-44.8); MCH 29.8 pg (27.0-35.0); MCHC 35.2 g/dL (32.0-36.0); MCV 84.6 fL (80-100); MPV 8.6 fL (7.6-11.3); Monocytes % 8.8 % (3.3-12.3); Neutrophils % 58.1 % (41.7-73.7); Nucleated Red Blood Cells % 0.1 % (0-0); Platelets 256 thou/uL (152-406); RBC Red Blood Cell Count 4.84 M/uL (3.86-4.86); Red Cell Distribution Width 13.9 % (12.1-15.2)
[2024-05-12 08:38] LABS: Specific Gravity 1.016 (1.005-1.030)
[2024-05-12 08:40] LABS: Specific Gravity 1.016 (1.005-1.030); Sqamous Epithelial <5 /HPF (None Seen); Urine Bacteria <20 /HPF (<20); Urine Bilirubin NEGATIVE (Negative); Urine Blood Trace (Negative); Urine Clarity Clear (Clear); Urine Color Light-Yellow (Yellow); Urine Culture Reflex Order NOT NEEDED; Urine Glucose NEGATIVE (Negative); Urine Ketones NEGATIVE (Negative); Urine Microscopic Reflex YN ORDER UMIC; Urine Nitrite NEGATIVE (Negative); Urine Protein NEGATIVE (Negative); Urine RBC <5 /HPF (None Seen); Urine Urobilinogen Normal (Normal); Urine WBC <5 /HPF (<5); Urine pH 5.5 (5.0-7.0)
[2024-05-12 08:40] LABS: Albumin/Globulin Ratio 1.2 (1.1-1.8); Anion Gap 8.6 mEq/L (5.0-15.0); Bilirubin Total 0.4 mg/dL (0.2-1.0); Globulin 3.4 g/dL (2.3-3.5); Potassium 3.6 mEq/L (3.5-5.1); Protein, Total 7.4 g/dL (6.4-8.2)
--- NOTE | 2024-05-12 09:12 | RAD REPORT ---
EXAMINATION: CT ABDOMEN AND PELVIS WITH CONTRAST CLINICAL INDICATION: ABD PAIN TECHNIQUE: CT abdomen and pelvis was performed, after the administration of IV contrast, as per [facility]. Axial, sagittal and coronal reconstructions were obtained. One or more of the following dose reduction techniques were used: Automated exposure control, adjustment of the mA and k V according to patient size, and iterative reconstruction. Unless otherwise specified, incidental findings do not require dedicated imaging follow-up. COMPARISON: 08/05/2018 FINDINGS: LOWER CHEST: The visualized lung bases are clear. LIVER: Normal in size and contour. Small cyst is present superiorly. No aggressive focal lesion. Chol ecystectomy clips. SPLEEN: Normal size. No focal lesion. PANCREAS: No mass, ductal dilation, or chapin-pancreatic fluid. ADRENALS: Normal; no mass. KIDNEYS: Normal size and contour. No hydronephrosis. GASTROINTESTINAL TRACT: No evidence of free air, significant intra-abdominal free fluid, bowel obstru ction or abscess. Mild fluid distention of colon and small bowel seen. APPENDIX: Appendix not visualized, but no inflammatory changes in region of appendix. LYMPH NODES: Mildly prominent mesenteric lymph nodes. MUSCULOSKELETAL: No acute or suspicious osseous abnormality. ADDITIONAL FINDINGS: IUD is in place. IMPRESSION: Fluid distention of large and small bowel loops are present may be related to a enterocolitis or ileu s. Nonvisualized appendix.
--- NOTE | 2024-05-12 09:40 | ER ---
Nurse's Notes [facility] Name: Lisa Damian Age: 38 yrs Sex: Female : 1985 Arrival Date: 05/12/2024 Time: 07:46 Bed 8 Private MD: Diagnosis: Noninfective gastroenteritis and colitis, unspecified Presentation: 05/12 08:04 Chief complaint: Patient states: episodic abd pain that began Thursday. Pt has been seen ss at [facility] for same complaints, but did not receive a specific diagnosis. Reports dicyclomine helps with her abd pain. Coronavirus screen: Client denies travel out of the [place] in the last 14 days. Ebola Screen: Patient denies exposure to infectious person. Patient denies travel to an Ebola-affected area in the 21 days before illness onset. Initial Sepsis Screen: Does the patient meet any 2 criteria? No. Patient's initial sepsis screen is negative. Does the patient have a suspected source of infection? No. Patient's initial sepsis screen is negative. Risk Assessment: Do you want to hurt yourself or someone else? Patient reports no desire to harm self or others. Onset of symptoms was May 09, 2024. 08:04 Method Of Arrival: Ambulatory ss 08:04 Acuity: DEAN 3 ss Historical: - Allergies: 08:05 Latex, Natural Rubber; ss - PMHx: 08:05 ADD/ADHD; ss - PSHx: 08:05 tubal ligation (ADD/ADHD); Cholecystectomy; section; ss - Immunization history:: Adult Immunizations unknown. - Infectious Disease History:: Denies. - Social history:: Smoking status: Patient denies any tobacco usage or history of. - Family history:: not pertinent. - Hospitalizations: : No recent hospitalization is reported. Screenin:20 [facility] ED Fall Risk Assessment (Adult) History of falling in the last 3 months, ph including since admission No falls in past 3 months (0 pts) Confusion or Disorientation No (0 pts) Intoxicated or Sedated No (0 pts) Impaired Gait No (0 pts) Mobility Assist Device Used No (0 pt) Altered Elimination No (0 pt) Score/Fall Risk Level 0 - 2 = Low Risk Oriented to surroundings, Maintained a safe environment, Hourly rounding (assess needs \T\ fall precautionary measures) done. Abuse screen: Denies threats or abuse. Denies injuries from another. Nutritional screening: No deficits noted. Tuberculosis screening: No symptoms or risk factors identified. Assessment: 08:15 General: Appears in no apparent distress. Behavior is calm, cooperative, appropriate ll1 for age. Pain: Complains of pain in abdomen Quality of pain is described as aching, crampy. GI: Bowel sounds present X 4 quads. Abd is soft and non tender X 4 quads. Reports upper abdominal pain, nausea. 08:48 Reassessment: No changes from previously documented assessment. Patient and/or family ll1 updated on plan of care and expected duration. Pain level reassessed. Patient is alert, oriented x 3, equal unlabored respirations, skin warm/dry/pink. Vital Signs: 08:04 BP 129 / 80; Pulse 90; Resp 16; Temp 98.2(O); Pulse Ox 99% on R/A; ss 08:55 BP 139 / 97; Pulse 74; Resp 16; Pulse Ox 98% ; ll1 09:54 BP 132 / 87; Pulse 72; Resp 18; Temp 97.8; Pulse Ox 98% on R/A; ph ED Course: 07:52 Patient arrived in ED. cj3 07:53 Ranjith Santacruz MD is Attending Physician. rn 07:59 Tika Peres, RACHELL is Primary Nurse. ph 08:05 Triage completed. ss 08:05 Arm band placed on right wrist. ss 08:20 No provider procedures requiring assistance completed. Inserted saline lock: 20 gauge ll1 in left antecubital area, using aseptic technique. Blood collected. Flushed with 10 mL NS. 08:20 Initial lab(s) drawn, by me, sent to lab. ll1 08:27 Urinalysis w/ reflexes Sent. ll1 09:06 CT Abd/Pelvis - IV Contrast Only In Process Unspecified. EDMS 09:21 Patient has correct armband on for positive identification. Bed in low position. Call ph light in reach. Side rails up X 1. Pulse ox on. NIBP on. Door closed. Noise minimized. Warm blanket given. 09:39 Dony Asher MD is Referral Physician. rn 09:55 IV discontinued, intact, bleeding controlled, No redness/swelling at site. Pressure ph dressing applied. Administered Medications: 08:26 Drug: Dicyclomine PO 20 mg PO once Route: PO; ll1 08:52 Follow up: Response: No adverse reaction; Pain is decreased; RASS: Alert and Calm (0) ll1 08:27 Drug: Famotidine IVP 20 mg IVP once; dilute with 10 mL 0.9% NaCl; give over 2 minutes ll1 Route: IVP; Site: left antecubital; 08:51 Follow up: Response: No adverse reaction ll1 08:27 Drug: NS 0.9% IV 1000 ml IV at 1 bolus Per protocol; to be given as a bolus over 60 ll1 minutes Route: IV; Rate: 1 bolus; Site: left antecubital; 09:55 Follow up: Response: No adverse reaction; IV Status: Completed infusion; IV Intake: ph 1000ml 08:48 Drug: GI Cocktail without - (Maalox PO 30 ml, Lidocaine Mucous Membrane 2 % 15 ll1 ml) PO once Route: PO; 09:55 Follow up: Response: No adverse reaction ph Medication: 09:21 VIS not applicable for this client. ph Intake: 09:55 IV: 1000ml; Total: 1000ml. ph Outcome: 09:39 Discharge ordered by . rn 09:55 Discharged to home ambulatory, with friend, ph 09:55 Condition: good 09:55 Discharge instructions given to patient, Instructed on discharge instructions, follow up and referral plans. medication usage, Demonstrated understanding of instructions, follow-up care, medications, Prescriptions given X 3, 09:56 Patient left the ED. ph Signatures: Dispatcher [employer] EDMO Ranjith Santacruz MD MD rn Blanchard, Shelby, RN RN ss Hall, Patricia, RN RN ph Lewis, Lynsay, RN RN [facility] Sheila Bernal [facility]
--- NOTE | 2024-05-12 09:40 | EDPHYS ---
Physician Documentation [facility] Name: Lisa Damian Age: 38 yrs Sex: Female : 1985 Arrival Date: 05/12/2024 Time: 07:46 Bed 8 Private MD: ED Physician Ranjith Santacruz HPI: 05/12 08:32 This 38 yrs old Female presents to ER via Ambulatory with complaints of Abdominal Pain, rn Nausea/Vomiting/Diarrhea. 08:32 The patient presents to the emergency department with nausea, vomiting, diarrhea, rn abdominal pain. Onset: The symptoms/episode began/occurred 4 day(s) ago. Possible causes: unknown. The symptoms are aggravated by pressure, food , The symptoms are alleviated by nothing. Severity of symptoms: At their worst the symptoms were moderate in the emergency department the symptoms are unchanged. The patient has experienced a previous episode. Patient reports mid abdominal pain worse with eating, associated with vomiting and diarrhea. Diarrhea is nonbloody. No fever or chills. This happened to her a month ago and seen at [facility] emergency room without clear diagnosis. No family history of inflammatory bowel disease or autoimmune problems.. Historical: - Allergies: 08:05 Latex, Natural Rubber; ss - PMHx: 08:05 ADD/ADHD; ss - PSHx: 08:05 tubal ligation (ADD/ADHD); Cholecystectomy; section; ss - Immunization history:: Adult Immunizations unknown. - Infectious Disease History:: Denies. - Social history:: Smoking status: Patient denies any tobacco usage or history of. - Family history:: not pertinent. - Hospitalizations: : No recent hospitalization is reported. ROS: 08:32 Constitutional: Negative for fever, chills, and weight loss, Cardiovascular: Negative rn for chest pain, palpitations, and edema, Respiratory: Negative for shortness of breath, cough, wheezing, and pleuritic chest pain, Abdomen/GI: Positive for abdominal pain with vomiting and diarrhea Back: Negative for injury and pain, MS/Extremity: Negative for injury and deformity, Skin: Negative for injury, rash, and discoloration, Neuro: Positive for generalized weakness and malaise Exam: 08:32 Constitutional: This is a well developed, well nourished patient who is awake, alert, rn and in no acute distress. Ambulatory to room without assistance or difficulty Cardiovascular: Regular rate and rhythm. No pulse deficits. Respiratory: No increased work of breathing, no retractions or nasal flaring. Abdomen/GI: Soft, epigastric and mid abdominal tenderness without rebound or guarding. Neuro: Awake and alert, GCS 15 Vital Signs: 08:04 BP 129 / 80; Pulse 90; Resp 16; Temp 98.2(O); Pulse Ox 99% on R/A; ss 08:55 BP 139 / 97; Pulse 74; Resp 16; Pulse Ox 98% ; ll1 09:54 BP 132 / 87; Pulse 72; Resp 18; Temp 97.8; Pulse Ox 98% on R/A; ph MDM: 07:53 Medical Screening Exam initiated rn 09:38 Differential diagnosis: Nonspecific abd pain, gastritis, pancreatitis, appendicitis, rn diverticulitis, viral gastroenteritis, gastroenteritis, Inflammatory bowel disease, gastritis. Data reviewed: vital signs, nurses notes, lab test result(s), radiologic studies, CT scan, and as a result, I will discharge patient. Counseling: I had a detailed discussion with the patient and/or guardian regarding the historical points, exam findings, and any diagnostic results supporting the discharge/admit diagnosis, lab results, radiology results, the need for outpatient follow up, to return to the emergency department if symptoms worsen or persist or if there are any questions or concerns that arise at home. Response to treatment: the patient's symptoms have markedly improved after treatment, and as a result, I will discharge patient. Special discussion: Based on the patient's Hx, exam, and Dx evaluation, there is no indication for emergent surgery or inpatient Tx. It is understood by the patient/guardian that if the Sx's persist or worsen they need to return immediately for re-evaluation. I discussed with the patient/guardian in detail that at this point there is no indication for admission to the hospital. It is understood, however, that if the symptoms persist or worsen the patient needs to return immediately for re-evaluation. Based on the history and exam findings, there is no indication for further emergent testing or inpatient evaluation. I discussed with the patient/guardian the need to see the parachute mender for further evaluation of the symptoms. ED course: CT shows fluid distention of intestine, no focal signs of infection. No acute surgical abnormalities found. Labs unremarkable. Urine unremarkable. Spoke at length with patient regarding possible diagnoses including gastritis, colitis, enterocolitis, inflammatory bowel disease. Will follow-up with GI. 09:41 ED course: Patient afebrile, normal WBC, this is second time in 2 months, likely not rn infectious. Told her to maybe stop her semaglutide as could be causing intestinal issues as well as GI follow-up for possible inflammatory bowel disease workup. No indication for antibiotics at this time.. 05/12 08:07 Order name: CBC with Diff; Complete Time: 08:25 rn 05/12 08:07 Order name: CMP; Complete Time: 08:42 rn 05/12 08:07 Order name: Lipase; Complete Time: 08:42 rn 05/12 08:07 Order name: Test, Urine; Complete Time: 08:42 rn 05/12 08:07 Order name: Urinalysis w/ reflexes; Complete Time: 08:42 rn 05/12 08:07 Order name: CT Abd/Pelvis - IV Contrast Only; Complete Time: 09:22 rn 05/12 08:07 Order name: IV Saline Lock; Complete Time: 08:12 rn 05/12 08:07 Order name: Labs collected and sent; Complete Time: 08:12 rn Administered Medications: 08:26 Drug: Dicyclomine PO 20 mg PO once Route: PO; ll1 08:52 Follow up: Response: No adverse reaction; Pain is decreased; RASS: Alert and Calm (0) ll1 08:27 Drug: Famotidine IVP 20 mg IVP once; dilute with 10 mL 0.9% NaCl; give over 2 minutes ll1 Route: IVP; Site: left antecubital; 08:51 Follow up: Response: No adverse reaction ll1 08:27 Drug: NS 0.9% IV 1000 ml IV at 1 bolus Per protocol; to be given as a bolus over 60 ll1 minutes Route: IV; Rate: 1 bolus; Site: left antecubital; 09:55 Follow up: Response: No adverse reaction; IV Status: Completed infusion; IV Intake: ph 1000ml 08:48 Drug: GI Cocktail without - (Maalox PO 30 ml, Lidocaine Mucous Membrane 2 % 15 ll1 ml) PO once Route: PO; 09:55 Follow up: Response: No adverse reaction ph Disposition Summary: 05/12/24 09:39 Discharge Ordered Notes: Location: Home rn Problem: new rn Symptoms: have improved rn Condition: Stable rn Diagnosis - Noninfective gastroenteritis and colitis, unspecified rn Followup: rn - With: Dony Asher MD - When: As needed - Reason: Recheck today's complaints, Re-evaluation by your physician Discharge Instructions: - Diarrhea, Adult rn - Vomiting, Adult rn - Discharge Summary Sheet ll1 Forms: - Medication Reconciliation Form rn - Antibiotic rn imcu - Prescription Opioid Use rn - Patient Portal Instructions rn - Leadership Thank You Letter rn - Work release form ll1 Prescriptions: - ondansetron 4 mg Oral Tablet,disintegrating - take 1 tablet ORAL route every 8 hours As needed; 12 tablet; Refills: 0, rn Product Selection Permitted - Protonix 40 mg Oral Tablet - take 1 tablet ORAL route once daily; 30 tablet; Refills: 0, Product Selection rn Permitted - dicyclomine 20 mg Oral tablet - take 1 tablet ORAL route 3 times per day As needed; 30 tablet; Refills: 0, rn Product Selection Permitted Signatures: Dispatcher [employer] EDMS Ranjith Santacruz MD MD rn Blanchard, Shelby, RN RN ss Hall, Patricia, RN RN Silviano Esparza, RN RN 1 Corrections: (The following items were deleted from the chart) 08:07 08:07 Abdomen Pelvis W [id number].[id number] ordered. EDWV EDMS
[2024-05-12 10:20] VITALS: O2SAT 98
[2024-05-12 10:21] VITALS: BP 132/87; TEMP 97.8
== END 2024-05-12 09:56 | disposition home or self-care (01) ==
LOC: ER 07:46
DX: K52.9 Noninfective gastroenteritis and colitis, unspecified (principal)
CPT/HCPCS: 96361; 85025; 81001; 36415; 81025; 83690; 80053; 74177; 96374; 99284; Q9967; J7030